=== PATIENT | female | born 1955 | race Caucasian/White ===

== ENCOUNTER 2020-06-25 07:49 | Outpatient (REF) | payer OTHER, SELFPAY ==
[2020-06-25 11:13] LABS: MANUAL DIFF FLAG NO
[2020-06-25 11:17] LABS: Basophils Percent Auto 0.8 % (0-2); Eosinophils Absolute Auto 0.1 X10*3/uL (0.0-0.4); Eosinophils Percent Auto 2.5 % (0-4); Hematocrit 40.1 % (37-47); Hemoglobin 13.1 g/dl (12.0-16.0); Imm Gran Abs Auto 0.01 X10*3/uL (0.00-0.03); Imm Gran Pct Auto 0.2 % (0.0-0.4); Lymphocytes Absolute Auto 1.9 X10*3/uL (1.2-4.9); Lymphocytes Percent Auto 40.2 % (20-40); Mean Corpuscular HGB Conc 32.7 g/dl (31.0-35.0); Mean Corpuscular Hemoglobin 33.1 pg (27.0-33.0); Mean Corpuscular Volume 101.3 fL (80-98); Mean Platelet Volume 9.8 fL (9.4-12.3); Monocytes Absolute Auto 0.7 X10*3/uL (0.1-1.2); Monocytes Percent Auto 13.9 % (2-11); Neutrophils Absolute Auto 2.1 X10*3/uL (2.0-8.3); Neutrophils Percent Auto 42.4 % (45-73); Platelet Count 254 X10*3/uL (160-400); Red Blood Count 3.96 X10*6/uL (4.20-5.50); Red Cell Distribution Width 11.6 % (11.0-16.0); White Blood Count 4.8 X10*3/uL (4.8-10.8)
[2020-06-25 11:59] LABS: Alanine Aminotransferase 24 U/L (0-31); Albumin Level 4.2 g/dL (3.5-5.0); Alkaline Phosphatase 76 U/L (39-117); Anion Gap 13 (12-20); Aspartate Amino Transferase 28 U/L (5-31); Bilirubin Total 0.3 mg/dL (0.0-1.0); Blood Urea Nitrogen 13 mg/dL (9-16); Calcium 9.1 mg/dL (8.4-10.2); Carbon Dioxide 27 mmol/L (22-29); Chloride 104 mmol/L (96-108); Cholesterol 211 mg/dL; Estimated Glomerular Filt Rate > 60; Glucose Fasting 82 mg/dL (60-99); HDL Cholesterol 66 mg/dL; LDL Cholesterol Calculated 127 mg/dl; Potassium 4.3 mmol/l (3.3-5.1); Sodium 140 mmol/L (135-145); Total Protein 7.4 g/dL (6.5-8.0); Triglycerides 94 mg/dL
[2020-06-25 12:18] LABS: Free T4 (Free Thyroxine) 0.99 ng/dL (0.71-1.85); Thyroid Stimulating Hormone 1.34 uIU/mL (0.32-4.0)
== END 2020-06-25 07:50 | disposition home or self-care (01) ==
LOC: HO.HMGCLDS 07:49
PROVIDERS: PCP Internal Medicine; Visit Provider Internal Medicine
DX: E03.9 Hypothyroidism, unspecified (principal); Z00.00 Encounter for general adult medical examination without abnormal findings
CPT/HCPCS: 36415; 80053; 80061; 84439; 84443; 85025

== ENCOUNTER 2021-02-17 08:08 | Outpatient (REF) | payer OTHER, SELFPAY ==
[2021-02-20 12:00] LABS: HPV 16 RNA NOT DETECTED (NOT DETECTED); HPV mRNA E6/E7 rflx Detected (Not Detected)
== END 2021-02-17 08:09 | disposition home or self-care (01) ==
LOC: HO.LAB 08:08
PROVIDERS: PCP Internal Medicine; Visit Provider Advanced Practice Midwife
DX: Z01.419 Encounter for gynecological examination (general) (routine) without abnormal findings (principal); Z78.0 Asymptomatic menopausal state; Z80.9 Family history of malignant neoplasm, unspecified
CPT/HCPCS: 87624; 87625; 88142

== ENCOUNTER 2022-02-19 09:01 | Outpatient (REF) | payer OTHER, SELFPAY ==
[2022-02-26 06:02] LABS: HPV 16 RNA NOT DETECTED (NOT DETECTED); HPV mRNA E6/E7 rflx Detected (Not Detected)
== END 2022-02-19 09:02 | disposition home or self-care (01) ==
LOC: HO.LAB 09:01
PROVIDERS: Visit Provider Advanced Practice Midwife
DX: Z01.419 Encounter for gynecological examination (general) (routine) without abnormal findings (principal); Z11.51 Encounter for screening for human papillomavirus (HPV)
CPT/HCPCS: 87624; 87625; 88142

== ENCOUNTER 2022-03-02 07:08 | Outpatient (REF) | payer OTHER, SELFPAY ==
[2022-03-02 11:26] LABS: MANUAL DIFF FLAG NO
[2022-03-02 11:35] LABS: Basophils Percent Auto 0.5 % (0-2); Eosinophils Absolute Auto 0.3 X10*3/uL (0.0-0.4); Eosinophils Percent Auto 2.8 % (0-4); Hematocrit 35.6 % (37.0-47.0); Hemoglobin 11.2 g/dl (12.0-16.0); Imm Gran Abs Auto 0.04 X10*3/uL (0.00-0.03); Imm Gran Pct Auto 0.5 % (0.0-0.4); Lymphocytes Absolute Auto 2.3 X10*3/uL (1.2-4.9); Lymphocytes Percent Auto 26.1 % (20-40); Mean Corpuscular HGB Conc 31.5 g/dl (31.0-35.0); Mean Corpuscular Hemoglobin 30.9 pg (27.0-33.0); Mean Corpuscular Volume 98.3 fL (80.0-98.0); Mean Platelet Volume 8.5 fL (9.4-12.3); Monocytes Percent Auto 11.8 % (2-11); Neutrophils Absolute Auto 5.2 x10*3/uL (2.0-8.3); Neutrophils Percent Auto 58.3 % (45-73); Platelet Count 435 X10*3/uL (160-400); Red Blood Count 3.62 X10*6/uL (4.20-5.50); Red Cell Distribution Width 11.6 % (11.0-16.0); White Blood Count 8.8 X10*3/uL (4.8-10.8)
[2022-03-02 12:09] LABS: Free T4 (Free Thyroxine) 1.15 ng/dL (0.71-1.85); Thyroid Stimulating Hormone 1.17 uIU/mL (0.32-4.0)
[2022-03-02 12:12] LABS: Erythrocyte Sedimentation Rate 97 MM/HR (0-20)
[2022-03-02 12:16] LABS: Alanine Aminotransferase 8 U/L (0-31); Albumin Level 3.7 g/dL (3.5-5.0); Alkaline Phosphatase 74 U/L (39-117); Anion Gap 17 (12-20); Aspartate Amino Transferase 15 U/L (5-31); Bilirubin Total 0.4 mg/dL (0.0-1.0); Blood Urea Nitrogen 11 mg/dL (9-16); Calcium 9.2 mg/dL (8.4-10.2); Carbon Dioxide 24 mmol/L (22-29); Chloride 103 mmol/L (96-108); Cholesterol 164 mg/dL; Estimated Glomerular Filt Rate > 60; Glucose Fasting 97 mg/dL (60-99); HDL Cholesterol 51 mg/dL; LDL Cholesterol Calculated 98 mg/dl; Potassium 4.3 mmol/L (3.3-5.1); Sodium 140 mmol/L (135-145); Total Protein 7.9 g/dL (6.5-8.0); Triglycerides 78 mg/dL
== END 2022-03-02 07:09 | disposition home or self-care (01) ==
LOC: HO.HMGCLDS 07:08
PROVIDERS: PCP Internal Medicine; Visit Provider Internal Medicine
DX: Z00.00 Encounter for general adult medical examination without abnormal findings (principal); Z86.16 Personal history of COVID-19
CPT/HCPCS: 36415; 80053; 80061; 82550; 84439; 84443; 85025; 85652; 86140

== ENCOUNTER 2022-03-04 09:36 | Outpatient (REF) | payer OTHER, SELFPAY ==
[2022-03-04 13:51] LABS: C Reactive Protein 11.92 mg/dL (< or = 0.50); Rheumatoid Factor < 15.0 IU/mL (<15.0)
[2022-03-06 21:51] LABS: Anti Nuclear Antibody Screen NEGATIVE (NEGATIVE)
[2022-03-09 21:42] LABS: Thyroid Peroxidase Antibodies 8 IU/mL (<9)
== END 2022-03-04 09:37 | disposition home or self-care (01) ==
LOC: HO.HMGCLDS 09:36
PROVIDERS: PCP Internal Medicine; Visit Provider Internal Medicine
DX: M79.10 Myalgia, unspecified site (principal); R79.82 Elevated C-reactive protein (CRP)
CPT/HCPCS: 36415; 86038; 86039; 86140; 86376; 86431

== ENCOUNTER 2022-04-13 16:07 | Outpatient (REF) | payer OTHER, SELFPAY | END 2022-04-13 16:08 | disposition home or self-care (01) | LOC: HO.LNP 16:07 | PROVIDERS: PCP Internal Medicine; Visit Provider Obstetrics & Gynecology | DX: R87.610 Atypical squamous cells of undetermined significance on cytologic smear of cervix (ASC-US) (principal); R87.810 Cervical high risk human papillomavirus (HPV) DNA test positive | CPT/HCPCS: 57454; 88305 ==

== ENCOUNTER 2022-06-16 09:59 | Outpatient (REF) | payer OTHER, SELFPAY ==
[2022-06-16 11:56] LABS: Anion Gap 15 (12-20); Blood Urea Nitrogen 13 mg/dL (9-16); C Reactive Protein 0.43 mg/dL (< or = 0.50); Carbon Dioxide 28 mmol/L (22-29); Chloride 102 mmol/L (96-108); Estimated Glomerular Filt Rate > 60; Glucose Random 88 mg/dL (60-115); Potassium 4.1 mmol/L (3.3-5.1); Sodium 141 mmol/L (135-145)
[2022-06-16 12:51] LABS: Erythrocyte Sedimentation Rate 34 MM/HR (0-20)
== END 2022-06-16 10:00 | disposition home or self-care (01) ==
LOC: HO.HMGCLDS 09:59
PROVIDERS: PCP Internal Medicine; Visit Provider Internal Medicine
DX: M35.3 Polymyalgia rheumatica (principal)
CPT/HCPCS: 36415; 80048; 85652; 86140

== ENCOUNTER 2022-08-04 08:16 | Outpatient (REF) | payer OTHER, SELFPAY ==
[2022-08-04 11:19] LABS: MANUAL DIFF FLAG NO
[2022-08-04 11:38] LABS: Basophils Absolute Auto 0.1 X10*3/uL (0.0-0.2); Basophils Percent Auto 0.5 % (0-2); Eosinophils Absolute Auto 0.1 X10*3/uL (0.0-0.4); Hematocrit 41.4 % (37.0-47.0); Hemoglobin 13.3 g/dl (12.0-16.0); Imm Gran Abs Auto 0.06 X10*3/uL (0.00-0.03); Imm Gran Pct Auto 0.5 % (0.0-0.4); Lymphocytes Absolute Auto 4.1 X10*3/uL (1.2-4.9); Lymphocytes Percent Auto 35.4 % (20-40); Mean Corpuscular HGB Conc 32.1 g/dl (31.0-35.0); Mean Corpuscular Hemoglobin 33.2 pg (27.0-33.0); Mean Corpuscular Volume 103.2 fL (80.0-98.0); Monocytes Absolute Auto 1.3 X10*3/uL (0.1-1.2); Monocytes Percent Auto 10.9 % (2-11); Neutrophils Absolute Auto 5.9 x10*3/uL (2.0-8.3); Neutrophils Percent Auto 51.7 % (45-73); Platelet Count 313 X10*3/uL (160-400); Red Blood Count 4.01 X10*6/uL (4.20-5.50); Red Cell Distribution Width 12.1 % (11.0-16.0); White Blood Count 11.4 X10*3/uL (4.8-10.8)
[2022-08-04 11:45] LABS: Alanine Aminotransferase 13 U/L (0-31); Albumin Level 3.9 g/dL (3.5-5.0); Alkaline Phosphatase 53 U/L (39-117); Anion Gap 14 (12-20); Aspartate Amino Transferase 18 U/L (5-31); Bilirubin Total 0.3 mg/dL (0.0-1.0); Blood Urea Nitrogen 18 mg/dL (9-16); C Reactive Protein 0.59 mg/dL (< or = 0.50); Calcium 9.3 mg/dL (8.4-10.2); Carbon Dioxide 27 mmol/L (22-29); Chloride 104 mmol/L (96-108); Estimated Glomerular Filt Rate > 60; Glucose Random 68 mg/dL (60-115); Potassium 3.8 mmol/L (3.3-5.1); Sodium 141 mmol/L (135-145); Total Protein 6.7 g/dL (6.5-8.0)
[2022-08-04 12:15] LABS: Erythrocyte Sedimentation Rate 37 MM/HR (0-20)
== END 2022-08-04 08:17 | disposition home or self-care (01) ==
LOC: HO.HMGCLDS 08:16
PROVIDERS: PCP Internal Medicine; Visit Provider Internal Medicine
DX: K21.9 Gastro-esophageal reflux disease without esophagitis (principal); M35.3 Polymyalgia rheumatica
CPT/HCPCS: 36415; 80053; 85025; 85652; 86140

== ENCOUNTER 2022-08-26 08:10 | Outpatient (REF) | payer OTHER, SELFPAY ==
[2022-08-26 12:03] LABS: C Reactive Protein 1.36 mg/dL (< or = 0.50)
[2022-08-26 12:15] LABS: Erythrocyte Sedimentation Rate 67 MM/HR (0-20)
== END 2022-08-26 08:11 | disposition home or self-care (01) ==
LOC: HO.HMGCLDS 08:10
PROVIDERS: PCP Internal Medicine; Visit Provider Internal Medicine
DX: M35.3 Polymyalgia rheumatica (principal)
CPT/HCPCS: 36415; 85652; 86140

== ENCOUNTER 2022-09-25 13:19 | Outpatient (REF) | payer OTHER, SELFPAY ==
[2022-09-25 17:19] LABS: C Reactive Protein 1.18 mg/dL (< or = 0.50)
[2022-09-25 18:07] LABS: Erythrocyte Sedimentation Rate 57 MM/HR (0-20)
== END 2022-09-25 13:20 | disposition home or self-care (01) ==
LOC: HO.HMGCLDS 13:19
PROVIDERS: PCP Internal Medicine; Visit Provider Internal Medicine
DX: M35.3 Polymyalgia rheumatica (principal)
CPT/HCPCS: 36415; 85652; 86140

== ENCOUNTER 2022-10-02 13:39 | Outpatient (REF) | payer OTHER, SELFPAY ==
--- NOTE | ~2022-10-02 | US_ITS ---
EXAMINATION: US VENOUS ULTRASOUND WITH DOPPLER LOWER EXTREMITY, BILATERAL CLINICAL INFORMATION: Bilateral calf pain. COMPARISON: None TECHNIQUE: Ultrasound of the deep veins is performed from the hip to the calf with compression sonography and color and pulse Doppler assessment. Spectral analysis with color-flow imaging is performed. FINDINGS: RIGHT: There is normal venous compression and respiratory variation and augmented flow. The visualized common femoral vein, superficial femoral vein, profunda femoral vein, popliteal vein, and the trifurcation region shows no evidence of deep venous thrombosis. There is no significant popliteal fossa cyst. LEFT: There is normal venous compression and respiratory variation and augmented flow. The visualized common femoral vein, superficial femoral vein, profunda femoral vein, popliteal vein, and the trifurcation region shows no evidence of deep venous thrombosis. There is no significant popliteal fossa cyst. If the patient's symptoms persist, followup ultrasound in 5 days 7 days might be of value to exclude proximal propagation from a non-visualized calf vein. US/US venous duplex LE BI IMPRESSION: No DVT demonstrated in the bilateral lower extremity.
[2022-10-02 16:09] LABS: Anion Gap 15 (12-20); Blood Urea Nitrogen 13 mg/dL (9-16); Calcium 9.6 mg/dL (8.4-10.2); Carbon Dioxide 28 mmol/L (22-29); Chloride 103 mmol/L (96-108); Estimated Glomerular Filt Rate > 60; Glucose Random 154 mg/dL (60-115); Magnesium 2.2 mg/dL (1.6-2.6); Potassium 4.2 mmol/L (3.3-5.1); Sodium 142 mmol/L (135-145)
== END 2022-10-02 13:40 | disposition home or self-care (01) ==
LOC: HO.US 13:39
PROVIDERS: PCP Internal Medicine; Visit Provider Internal Medicine
DX: M79.605 Pain in left leg (principal)
CPT/HCPCS: 36415; 80048; 83735; 93970

== ENCOUNTER 2022-10-19 08:24 | Outpatient (REF) | payer OTHER, SELFPAY ==
--- NOTE | ~2022-10-19 | XR_ITS ---
EXAMINATION: XR HIP LEFT XR HIP RIGHT CLINICAL INFORMATION: Osteoarthritis of hip. Decreased range of motion. Pain. COMPARISON: 07/16/2017 TECHNIQUE: Right hip, 2 views Left hip, 2 views FINDINGS: Right hip: The visualized pelvic bones are intact. The right femoral head is well-positioned within the acetabulum. The articular cartilage space is maintained. Interval increased size of marginal osteophytes around the femoral head. No fracture or osteonecrosis. Left hip: The femoral head is well-positioned within the intact acetabulum. The articular cartilage space is maintained. There appears to be increased size of osteophytes at the degenerated hip compared to 07/16/2017. No femoral fracture or osteonecrosis. XR/XR hip RT min 2V IMPRESSION: * No acute osseous injury at either hip. * [id number] osteoarthritis of both hips. The joint degeneration is slightly worse compared to 07/16/2017.
--- NOTE | ~2022-10-19 | XR_ITS ---
EXAMINATION: XR HAND RIGHT XR HAND LEFT CLINICAL INFORMATION: Osteoarthritis. Hand pain. COMPARISON: 04/10/2016 TECHNIQUE: Right hand, 3 views Left hand, 3 views FINDINGS: Right hand: Alignment is normal in the hand and wrist. There are small osteophytes of mildly degenerated first and third metacarpophalangeal joints. There are osteophytes of multiple degenerated interphalangeal joints with mild narrowing of several of the interphalangeal joint spaces. No interval development of osseous erosion or periostitis. Interval worsening of osteoarthritis at several joints, including the second and fourth PIPJs. The largest osteophytes are at the second PIP and there is surrounding soft tissue swelling. Left hand: Bones have normal alignment throughout the hand and wrist. Mild osteoarthritis of first and second metacarpophalangeal joints and at multiple interphalangeal joints. The joint degenerative changes are similar in appearance compared to 04/10/2016. No erosions or periostitis. XR/XR hand LT min 3V IMPRESSION: Chronic osteoarthritis of both hands. The mild osteoarthritis of the left hand remains similar in appearance compared to 04/10/2016. However, there is some worsening of osteoarthritis at interphalangeal joints within the right hand compared to 04/10/2016 (including the 2nd and 4th PIP joints).
--- NOTE | ~2022-10-19 | XR_ITS ---
EXAMINATION: XR HIP LEFT XR HIP RIGHT CLINICAL INFORMATION: Osteoarthritis of hip. Decreased range of motion. Pain. COMPARISON: 07/16/2017 TECHNIQUE: Right hip, 2 views Left hip, 2 views FINDINGS: Right hip: The visualized pelvic bones are intact. The right femoral head is well-positioned within the acetabulum. The articular cartilage space is maintained. Interval increased size of marginal osteophytes around the femoral head. No fracture or osteonecrosis. Left hip: The femoral head is well-positioned within the intact acetabulum. The articular cartilage space is maintained. There appears to be increased size of osteophytes at the degenerated hip compared to 07/16/2017. No femoral fracture or osteonecrosis. XR/XR hip LT min 2V IMPRESSION: * No acute osseous injury at either hip. * [id number] osteoarthritis of both hips. The joint degeneration is slightly worse compared to 07/16/2017.
--- NOTE | ~2022-10-19 | XR_ITS ---
EXAMINATION: XR HAND RIGHT XR HAND LEFT CLINICAL INFORMATION: Osteoarthritis. Hand pain. COMPARISON: 04/10/2016 TECHNIQUE: Right hand, 3 views Left hand, 3 views FINDINGS: Right hand: Alignment is normal in the hand and wrist. There are small osteophytes of mildly degenerated first and third metacarpophalangeal joints. There are osteophytes of multiple degenerated interphalangeal joints with mild narrowing of several of the interphalangeal joint spaces. No interval development of osseous erosion or periostitis. Interval worsening of osteoarthritis at several joints, including the second and fourth PIPJs. The largest osteophytes are at the second PIP and there is surrounding soft tissue swelling. Left hand: Bones have normal alignment throughout the hand and wrist. Mild osteoarthritis of first and second metacarpophalangeal joints and at multiple interphalangeal joints. The joint degenerative changes are similar in appearance compared to 04/10/2016. No erosions or periostitis. XR/XR hand RT min 3V IMPRESSION: Chronic osteoarthritis of both hands. The mild osteoarthritis of the left hand remains similar in appearance compared to 04/10/2016. However, there is some worsening of osteoarthritis at interphalangeal joints within the right hand compared to 04/10/2016 (including the 2nd and 4th PIP joints).
[2022-10-19 10:12] LABS: MANUAL DIFF FLAG NO
[2022-10-19 10:34] LABS: Basophils Absolute Auto 0.1 X10*3/uL (0.0-0.2); Basophils Percent Auto 0.4 % (0-2); Eosinophils Percent Auto 0.3 % (0-4); Hematocrit 44.4 % (37.0-47.0); Hemoglobin 14.1 g/dl (12.0-16.0); Imm Gran Abs Auto 0.08 X10*3/uL (0.00-0.03); Imm Gran Pct Auto 0.6 % (0.0-0.4); Lymphocytes Absolute Auto 1.6 X10*3/uL (1.2-4.9); Lymphocytes Percent Auto 11.5 % (20-40); Mean Corpuscular HGB Conc 31.8 g/dl (31.0-35.0); Mean Corpuscular Hemoglobin 32.6 pg (27.0-33.0); Mean Corpuscular Volume 102.5 fL (80.0-98.0); Mean Platelet Volume 8.7 fL (9.4-12.3); Monocytes Absolute Auto 0.9 X10*3/uL (0.1-1.2); Monocytes Percent Auto 6.6 % (2-11); Neutrophils Absolute Auto 11.3 x10*3/uL (2.0-8.3); Neutrophils Percent Auto 80.6 % (45-73); Platelet Count 253 X10*3/uL (160-400); Red Blood Count 4.33 X10*6/uL (4.20-5.50); Red Cell Distribution Width 11.9 % (11.0-16.0)
[2022-10-19 11:34] LABS: C Reactive Protein 0.36 mg/dL (< or = 0.50)
[2022-10-19 11:41] LABS: Erythrocyte Sedimentation Rate 34 MM/HR (0-20)
[2022-10-22 23:08] LABS: Prot Elec - Alpha1 0.3 g/dL (0.2-0.3); Prot Elec - Alpha2 0.9 g/dL (0.5-0.9); Prot Elec - Beta 1 0.5 g/dL (0.4-0.6); Prot Elec - Beta 2 0.5 g/dL (0.2-0.5); Prot Elec - Gamma 0.9 g/dL (0.8-1.7)
[2022-10-23 10:53] LABS: Cyclic Citrullinated Peptide <16 UNITS
[2022-10-23 18:08] LABS: Vitamin D 25-OH, D2 <4 ng/mL; Vitamin D 25-OH, D3 30 ng/mL; Vitamin D 25-OH, Total 30 ng/mL (30-100)
== END 2022-10-19 08:25 | disposition home or self-care (01) ==
LOC: HO.LAB 08:24
PROVIDERS: PCP Internal Medicine; Visit Provider Internal Medicine Rheumatology
DX: M19.041 Primary osteoarthritis, right hand (principal); M19.042 Primary osteoarthritis, left hand; M16.0 Bilateral primary osteoarthritis of hip; R70.0 Elevated erythrocyte sedimentation rate; Z78.0 Asymptomatic menopausal state; Z79.52 Long term (current) use of systemic steroids; Z87.39 Personal history of other diseases of the musculoskeletal system and connective tissue; Z79.899 Other long term (current) drug therapy
CPT/HCPCS: 36415; 73130; 73502; 82306; 84165; 85025; 85652; 86140; 86200

== ENCOUNTER → 2022-11-24 11:25 | Outpatient (BNVA) | payer OTHER, SELFPAY | PROVIDERS: PCP Internal Medicine; Visit Provider Internal Medicine Rheumatology | DX: M16.0 Bilateral primary osteoarthritis of hip (principal); M70.62 Trochanteric bursitis, left hip; M19.041 Primary osteoarthritis, right hand; M19.042 Primary osteoarthritis, left hand; Z87.39 Personal history of other diseases of the musculoskeletal system and connective tissue | CPT/HCPCS: 20610 ==

== ENCOUNTER 2022-11-24 12:36 | Outpatient (REF) | payer OTHER, SELFPAY ==
[2022-11-24 14:19] LABS: Erythrocyte Sedimentation Rate 38 MM/HR (0-20)
[2022-11-24 14:23] LABS: C Reactive Protein 0.63 mg/dL (< or = 0.50)
== END 2022-11-24 12:37 | disposition home or self-care (01) ==
LOC: HO.10HDL 12:36
PROVIDERS: Visit Provider Internal Medicine Rheumatology
DX: M16.0 Bilateral primary osteoarthritis of hip (principal); M19.041 Primary osteoarthritis, right hand; M19.042 Primary osteoarthritis, left hand; M70.62 Trochanteric bursitis, left hip; Z87.39 Personal history of other diseases of the musculoskeletal system and connective tissue
CPT/HCPCS: 36415; 85652; 86140

== ENCOUNTER 2023-01-06 10:01 | Outpatient (REF) | payer MEDICARE, SELFPAY ==
--- NOTE | ~2023-01-06 | MM_ITS ---
EXAMINATION: BONE DENSITOMETRY CLINICAL INDICATION: Menopause. COMPARISON: None (current study represents initial baseline exam). TECHNIQUE: Using a [employer] DXA System (software version: 13.1) manufactured by [employer], dual-energy x-ray absorptiometry was performed of the lumbar spine and left hip. The images are of good technical quality. Summary results are attached. FINDINGS: AP SPINE L1-L4: BMD 0.993 g/cm2, Z-score -0.2, T-score -1.6, osteopenia. LEFT FEMUR, NECK: BMD 0.904 g/cm2, Z-score 0.3, T-score -1.0, normal. LEFT FEMUR, TOTAL: BMD 0.851 g/cm2, Z-score -0.2, T-score -1.2, osteopenia. IDENTIFIED RISK FACTORS: Menopause, history of fracture (adult), glucocorticoids (chronic). HISTORY OF FRACTURE: Ankle. MEDICATIONS: Calcium, vitamin D, ERT/SERMS. MM/XR DEXA axial skeleton IMPRESSION: 1. DIAGNOSIS: Osteopenia based on the lowest T-score value of -1.6 in the lumbar spine applying World Health Organization criteria. 2. 10-YEAR FRACTURE RISK PREDICTION, FRAX: Not performed in this patient on estrogen or bone building treatments. 3. Treatment Recommendations: NOF guidelines recommend consideration for treatment in postmenopausal women and men age 50 and older presenting with the following: -A hip or vertebral (clinical or morphometric) fracture. -T-score less than or equal to -2.5 at the femoral neck or spine after appropriate evaluation to exclude secondary causes. -Low bone mass at the hip or spine and a 10-year fracture probability by FRAX of greater than or equal to 3% for hip fracture or greater than or equal to 20% for major osteoporotic fracture based on the [place] adapted WHO algorithm. 4. Other Recommendations: All treatment decisions require clinical judgment and consideration of individual patient factors, including patient preferences, comorbidities, previous drug use, risk factors not captured in the FRAX model (e.g. frailty, falls, vitamin D deficiency, increased bone turnover, interval significant decline in bone density) and possible under or overestimation of fracture risk by FRAX. Additional medical evaluation for secondary cause of low bone mineral density may be appropriate. FUTURE SCAN RECOMMENDATION: People with diagnosed cases of osteoporosis or at high risk for fracture should have regular bone mineral density tests. For patients eligible for Medicare, routine testing is allowed once every 2 years. The testing frequency can be increased to one year for patients who have rapidly progressing disease, those who are receiving or discontinuing medical therapy to restore bone mass, or have additional risk factors.
== END 2023-01-06 10:02 | disposition home or self-care (01) ==
LOC: HO.MAMMO 10:01
PROVIDERS: PCP Internal Medicine; Visit Provider Internal Medicine Rheumatology
DX: Z13.820 Encounter for screening for osteoporosis (principal); Z78.0 Asymptomatic menopausal state; Z79.52 Long term (current) use of systemic steroids
CPT/HCPCS: 77080

== ENCOUNTER 2023-01-25 08:04 | Outpatient (REF) | payer MEDICARE, SELFPAY ==
[2023-01-25 11:18] LABS: Erythrocyte Sedimentation Rate 68 MM/HR (0-20)
== END 2023-01-25 08:05 | disposition home or self-care (01) ==
LOC: HO.10HDL 08:04
PROVIDERS: Visit Provider Internal Medicine Rheumatology
DX: Z87.39 Personal history of other diseases of the musculoskeletal system and connective tissue (principal)
CPT/HCPCS: 36415; 85652; 86140

== ENCOUNTER → 2023-01-27 10:05 | Outpatient (BNVA) | payer MEDICARE, SELFPAY | PROVIDERS: PCP Internal Medicine; Visit Provider Internal Medicine Rheumatology | DX: M16.0 Bilateral primary osteoarthritis of hip (principal); M19.041 Primary osteoarthritis, right hand; M19.042 Primary osteoarthritis, left hand; Z87.39 Personal history of other diseases of the musculoskeletal system and connective tissue | CPT/HCPCS: 99212 ==

== ENCOUNTER 2023-02-10 08:41 | Outpatient (REF) | payer MEDICARE, SELFPAY ==
[2023-02-10 11:34] LABS: Erythrocyte Sedimentation Rate 58 MM/HR (0-20)
== END 2023-02-10 08:42 | disposition home or self-care (01) ==
LOC: HO.10HDL 08:41
PROVIDERS: Visit Provider Internal Medicine Rheumatology
DX: M85.80 Other specified disorders of bone density and structure, unspecified site (principal); Z87.39 Personal history of other diseases of the musculoskeletal system and connective tissue
CPT/HCPCS: 36415; 85652; 86140

== ENCOUNTER 2023-03-03 06:09 | Outpatient (REF) | payer MEDICARE, SELFPAY ==
[2023-03-03 11:26] LABS: MANUAL DIFF FLAG NO
[2023-03-03 11:49] LABS: Basophils Absolute Auto 0.1 X10*3/uL (0.0-0.2); Basophils Percent Auto 0.7 % (0-2); Eosinophils Absolute Auto 0.1 X10*3/uL (0.0-0.4); Eosinophils Percent Auto 1.4 % (0-4); Hematocrit 38.8 % (37.0-47.0); Hemoglobin 12.6 g/dl (12.0-16.0); Imm Gran Abs Auto 0.02 X10*3/uL (0.00-0.03); Imm Gran Pct Auto 0.2 % (0.0-0.4); Lymphocytes Absolute Auto 3.5 X10*3/uL (1.2-4.9); Lymphocytes Percent Auto 40.1 % (20-40); Mean Corpuscular HGB Conc 32.5 g/dl (31.0-35.0); Mean Corpuscular Hemoglobin 33.2 pg (27.0-33.0); Mean Corpuscular Volume 102.1 fL (80.0-98.0); Mean Platelet Volume 8.7 fL (9.4-12.3); Monocytes Percent Auto 11.9 % (2-11); Neutrophils Absolute Auto 3.9 x10*3/uL (2.0-8.3); Neutrophils Percent Auto 45.7 % (45-73); Platelet Count 322 X10*3/uL (160-400); Red Cell Distribution Width 11.9 % (11.0-16.0); White Blood Count 8.6 X10*3/uL (4.8-10.8)
[2023-03-03 11:59] LABS: Estimated Average Glucose 105 mg/dL; Hemoglobin A1c % 5.3 %
[2023-03-03 12:23] LABS: Alanine Aminotransferase 13 U/L (0-31); Albumin Level 3.8 g/dL (3.5-5.0); Alkaline Phosphatase 52 U/L (39-117); Anion Gap 15 (12-20); Aspartate Amino Transferase 19 U/L (5-31); Bilirubin Total 0.3 mg/dL (0.0-1.0); Blood Urea Nitrogen 15 mg/dL (9-16); Calcium 9.2 mg/dL (8.4-10.2); Carbon Dioxide 24 mmol/L (22-29); Chloride 107 mmol/L (96-108); Cholesterol 188 mg/dL; Estimated Glomerular Filt Rate > 60; Glucose Fasting 73 mg/dL (60-99); HDL Cholesterol 74 mg/dL; LDL Cholesterol Calculated 102 mg/dl; Potassium 3.7 mmol/L (3.3-5.1); Sodium 142 mmol/L (135-145); Triglycerides 63 mg/dL
== END 2023-03-03 06:10 | disposition home or self-care (01) ==
LOC: HO.HMGCLDS 06:09
PROVIDERS: PCP Internal Medicine; Visit Provider Internal Medicine
DX: R73.03 Prediabetes (principal); Z82.61 Family history of arthritis; I25.10 Atherosclerotic heart disease of native coronary artery without angina pectoris; M16.0 Bilateral primary osteoarthritis of hip
CPT/HCPCS: 36415; 80053; 80061; 82306; 83036; 85025

== ENCOUNTER 2023-03-22 08:06 | Outpatient (REF) | payer MEDICARE, SELFPAY ==
[2023-03-22 12:24] LABS: C Reactive Protein 0.96 mg/dL (< or = 0.50)
[2023-03-22 13:40] LABS: Erythrocyte Sedimentation Rate 65 MM/HR (0-20)
== END 2023-03-22 08:07 | disposition home or self-care (01) ==
LOC: HO.HMGCLDS 08:06
PROVIDERS: PCP Internal Medicine; Visit Provider Internal Medicine Rheumatology
DX: M85.80 Other specified disorders of bone density and structure, unspecified site (principal); Z87.39 Personal history of other diseases of the musculoskeletal system and connective tissue
CPT/HCPCS: 36415; 85652; 86140

== ENCOUNTER 2023-03-24 09:11 | Outpatient (AMB) | payer MEDICARE, SELFPAY ==
--- NOTE | 2023-03-24 09:18 | A.OFFVIS_ITS ---
Intake Vital Signs 03/24/23 09:20 Height 5 ft 7 in Weight 159 lb 9.835 oz BMI 25.0 BP 164/82 H Blood Pressure Location Rt brachial Position Sitting Pulse 74 Pulse Source Pulse Oximeter Temp 97.4 F Temp Source Skin Pulse Oximetry (%) 98 Oxygen Delivery Method Room Air Intake Visit Reasons: PMR Intake Note: Here for PMR follow up. 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 She is down to 5 mg prednisone in the morning and 2.5 mg in the afternoon. She notes only occasional discomfort in the right thigh muscles when she is active. She has no headache, jaw claudication or visual disturbance. She notes occasional discomfort in the right groin with prolonged walking, she believes this is from her osteoarthritis. She had not been taking 70 mg weekly alendronate; she felt it caused her to be constipated so she stopped it. She had been on that medication because of osteopenia and prednisone usage. [facility] Medical History Arthritis Diverticulitis Kedar's disease Surgical History H/O toe surgery Hx of wisdom tooth extraction Family History Sister Ovarian cancer Paternal Grandmother History of breast cancer Mother Rheumatoid arthritis Other Family history of arthritis Social History Alcohol intake: current Alcohol intake frequency: holidays/special occasions only Alcohol type: wine Patient Tobacco Use Status: Never used Tobacco Review of Systems Const Details: Negative for appetite change, weight change, fever, chills, malaise and fatigue Eyes Details: Negative for vision change, dry eyes,headaches and dizziness Card Details: Negative chest pain, edema and syncope Resp Details: Negative for SOB, cough and wheezing GI Details: Negative indigestion/heartburn, nausea, abdominal pain, bowel changes, diarrhea, constipation and bloody stool. Endo Details: Negative for polyuria and polydypsia Chris/Lymph Details: Negative for excessive bruising or bleeding. Physical Exam Vital Signs: Last Vital Signs Temp 97.4 F 03/24/23 09:20 Pulse 74 03/24/23 09:20 BP 164/82 H 03/24/23 09:20 Pulse Ox 98 03/24/23 09:20 Oxygen Delivery Method Room Air 03/24/23 09:20 BMI result Body Mass Index 25.0 APPEARANCE: Patient in no acute distress EYES no redness, pupils equal and reactive to light, eyelids normal.? No temporal artery tenderness, redness or swelling. Cervical Spine:.? Full range of motion without pain; no tenderness. Thoracic Spine:.? No scoliosis.? No tenderness on palpation. Lumbar Spine:.? Alignment normal.? Full range of motion without pain, no tenderness. Chest Wall:.? No tenderness, swelling, increased warmth or erythema. Hands:? Right:? There is bony enlargement at the 2nd through 5th PIP joints.? There is mild pain with range of motion at the 2nd and 3rd PIP's.? The 2nd through 4th PIP joints are the mildly tender.? There is some nontender bony enlargement at the 2nd and 5th DIP joints.? There is no flexor tendon triggering.? There is no MCP tenderness, thenar atrophy, sensory loss, or MCP swelling.? Left:? Normal pain-free range of motion without tenderness, soft tissue swelling, increased warmth or erythema.? There is some minimal bony enlargement at the thumb IP and the 2nd 3rd PIP joints.? No sensory loss or thenar atrophy. Wrists:.? Normal pain-free range of motion without tenderness, swelling, increased warmth or erythema. Elbows:. Normal pain-free range of motion without tenderness, swelling, increased warmth or erythema. Shoulders:.?? Full range of motion without pain. No tenderness, weakness, swelling, increased warmth or erythema. Hips:? Right: Mild groin and buttock discomfort with more than 5 degrees of internal rotation or 10 degrees of external rotation.? Motion is limited at that point.? There is no groin mass or tenderness.? Left:? Mild lateral pain with extremes of normal range of motion. ? No groin pain with motion. Hip bursa:.? Left:? Mild trochanteric tenderness.? Right:? No tenderness. Knees:?? Normal pain-free range of motion with slight patellofemoral crepitus but no effusion, tenderness, swelling, increased warmth or erythema.? Ankles: Will Normal pain-free range of motion without tenderness, swelling, increased warmth or erythema. ? Results Reviewed Results Reviewed: Laboratory Tests 03/03/23 03/03/23 03/22/23 06:20 06:20 08:11 WBC 8.6 Hgb 12.6 ESR 65 H Creatinine 0.77 C-Reactive Protein 03/22/23 08:11 WBC Hgb ESR Creatinine C-Reactive Protein 0.96 H Assessment & Plan Assessment & Plan (1) Osteoarthritis of hands, bilateral: Code(s): M19.041 - Primary osteoarthritis, right hand; M19.042 - Primary osteoarthritis, left hand (2) Osteopenia: Comment: 12/2022 T scores: LS spine -1.6, fem neck -1.0, tot fem -1.2 alendronate started 02/10/2023 Code(s): M85.80 - Other specified disorders of bone density and structure, unspecified site (3) ESR raised: Code(s): R70.0 - Elevated erythrocyte sedimentation rate (4) Osteoarthritis of hips, bilateral: Code(s): M16.0 - Bilateral primary osteoarthritis of hip (5) History of polymyalgia rheumatica: Code(s): Z87.39 - Personal history of other diseases of the musculoskeletal system and connective tissue Plan She does not seem to have any clear symptoms indicating clinical activity of her PMR. This right thigh pain could be referred pain from her right hip OA. She also does not have any signs of giant cell arteritis today. The CRP is close to normal but a sed rate really has not changed over the past year since she has been on the higher dose prednisone and the subsequent tapering to its current level. That makes us think there may be something else driving the elevated sed rate so I will check for immunofixation looking for a paraprotein. We elected to try to taper further the prednisone since she was feeling well. She will go on some 1 mg tablets and take 4 mg in the morning and 2.5 mg in the afternoon. In May she will drop to 3 mg in the morning and 2.5 mg in the afternoon in on June 02 go down to 2 mg the morning and 2.5 mg in the afternoon. She will call us with any flare of symptoms. We will check the acute phase reactants again in late April and before her next visit in 3 months. I told her she should give the alendronate another try as it is not usually a medicine that causes constipation where as her calcium supplement may be the culprit in that regard. Orders: Orders Immunofixation Pnl, Serum Today R70.0 - Elevated erythrocyte sedimentation rate C Reactive Protein Today Z87.39 - Personal history of other diseases of the musculoskeletal system and connective tissue Erythrocyte Sedimentation Rate Today Z87.39 - Personal history of other diseases of the musculoskeletal system and connective tissue Erythrocyte Sedimentation Rate 1 Month Z87.39 - Personal history of other diseases of the musculoskeletal system and connective tissue C Reactive Protein 1 Month Z87.39 - Personal history of other diseases of the musculoskeletal system and connective tissue Medications: New prednisone four tab in AM and one 2.5 mg tab in PM 120 tabs 5RF Z87.39 - Personal history of other diseases of the musculoskeletal system and connective tissue Coding Level of Care Code Est Pt Level 3 (16506) Diagnoses Osteoarthritis of hands, bilateral M19.041; M19.042 Osteopenia M85.80 ESR raised R70.0 Osteoarthritis of hips, bilateral M16.0 History of polymyalgia rheumatica Z87.39
[2023-03-24 09:20] VITALS: BP 164/82; PULSE 74; TEMP 36.3; O2SAT 98; BMI 25.0
== END 2023-03-24 10:10 | disposition home or self-care (01) ==
PROVIDERS: PCP Internal Medicine; Visit Provider Internal Medicine Rheumatology
DX: M19.041 Primary osteoarthritis, right hand (principal); M19.042 Primary osteoarthritis, left hand; M85.80 Other specified disorders of bone density and structure, unspecified site; R70.0 Elevated erythrocyte sedimentation rate; M16.0 Bilateral primary osteoarthritis of hip; Z87.39 Personal history of other diseases of the musculoskeletal system and connective tissue
CPT/HCPCS: 99213

== ENCOUNTER → 2023-03-24 09:11 | Outpatient (BNVA) | payer MEDICARE, SELFPAY | PROVIDERS: PCP Internal Medicine; Visit Provider Internal Medicine Rheumatology | DX: M19.041 Primary osteoarthritis, right hand (principal); M19.042 Primary osteoarthritis, left hand; M85.80 Other specified disorders of bone density and structure, unspecified site; M16.0 Bilateral primary osteoarthritis of hip; R70.0 Elevated erythrocyte sedimentation rate; Z87.39 Personal history of other diseases of the musculoskeletal system and connective tissue | CPT/HCPCS: 99212 ==

== ENCOUNTER 2023-04-28 07:51 | Outpatient (REF) | payer MEDICARE, SELFPAY ==
[2023-04-28 11:48] LABS: C Reactive Protein 1.18 mg/dL (< or = 0.50)
[2023-04-28 12:25] LABS: Erythrocyte Sedimentation Rate 67 MM/HR (0-20)
== END 2023-04-28 07:52 | disposition home or self-care (01) ==
LOC: HO.HMGCLDS 07:51
PROVIDERS: PCP Internal Medicine; Visit Provider Internal Medicine Rheumatology
DX: Z87.39 Personal history of other diseases of the musculoskeletal system and connective tissue (principal)
CPT/HCPCS: 36415; 85652; 86140

== ENCOUNTER 2023-06-28 08:19 | Outpatient (REF) | payer MEDICARE, SELFPAY ==
[2023-06-28 12:41] LABS: Erythrocyte Sedimentation Rate 80 MM/HR (0-20)
[2023-06-30 19:48] LABS: IgA 483 mg/dL (70-320); IgG 1303 mg/dL (600-1540); IgM 112 mg/dL (50-300)
== END 2023-06-28 08:20 | disposition home or self-care (01) ==
LOC: HO.HMGCLDS 08:19
PROVIDERS: PCP Internal Medicine; Visit Provider Internal Medicine Rheumatology
DX: R70.0 Elevated erythrocyte sedimentation rate (principal); Z87.39 Personal history of other diseases of the musculoskeletal system and connective tissue
CPT/HCPCS: 36415; 82784; 85652; 86140; 86334

== ENCOUNTER 2023-07-01 09:09 | Outpatient (AMB) | payer MEDICARE, SELFPAY ==
[2023-07-01 09:31] VITALS: BP 126/76; PULSE 82; TEMP 36.1; O2SAT 98; BMI 25.1
--- NOTE | 2023-07-01 09:31 | MHC.OFFVIS ---
Intake Vital Signs 07/01/23 09:31 Height 5 ft 7 in Weight 160 lb 7.944 oz BMI 25.1 BP 126/76 Blood Pressure Location Lt brachial Position Sitting Pulse 82 Pulse Source Pulse Oximeter Temp 97.0 F Temp Source Skin Pulse Oximetry (%) 98 Oxygen Delivery Method Room Air Intake Visit Reasons: PMR Speaker Mounter Required: No Allergies penicillin V Allergy (Unknown, Verified 07/01/23 09:36) Unknown Medication List - Last Reconciled 07/01/23 by Valerie Alvarez RN calcium carbonate (Calcium 500) 500 mg PO DAILY cholecalciferol (vitamin D3) 50 mcg PO DAILY cranberry nnvw-X-oopylngf coag 450-30-50 qc-gm-wddxgtw (Mxutgzwer-Qggxorurh-Sxrjgar C) tabs PO cyanocobalamin (vitamin B-12) 1,000 mcg PO DAILY epinephrine (Auvi-Q) IM omega-3 fatty acids (Fish Oil Concentrate) 1,000 mg PO DAILY prednisone two tab in AM and one tab in PM daily prednisone four tab in AM and one 2.5 mg tab in PM rujedbt-qpsy-sropk-oreg-capryl 100 mg-150 mg- 50 mg-150 mg caps PO HPI HPI Comments History of Present Illness Details The patient returns for evaluation of her PMR. We have been trying to taper her prednisone. At last visit she was at 5 mg in morning and 2.5 mg in the evening. Each month we dropped the morning dose by 1 mg. By the time she got to 3 mg in the morning and 2.5 mg in the evening she felt like she was having some more pain in the hips and the shoulders. She now feels she still has about the same pain at 2.5 mg b.i.d.. There has been no headache, jaw claudication or visual disturbance. She has not lost any weight. She has not noticed any decrement in her functioning. She does get pain in the right buttock and groin area while she is walking. She did not tolerate the alendronate, it gave her some nausea. She was taking this for osteopenia in the face of her prednisone use. [facility] Medical History Diverticulitis Arthritis Kedar's disease Surgical History H/O toe surgery Hx of wisdom tooth extraction Family History Sister Ovarian cancer Paternal Grandmother History of breast cancer Mother Rheumatoid arthritis Other Family history of arthritis Social History Alcohol intake: current Alcohol intake frequency: holidays/special occasions only Alcohol type: wine Patient Tobacco Use Status: Never used Tobacco Review of Systems Const Details: Negative for appetite change, weight change, fever, chills, malaise and fatigue Eyes Details: Negative for vision change, dry eyes,headaches and dizziness Card Details: Negative chest pain, edema and syncope Resp Details: Negative for SOB, cough and wheezing GI Details: Negative indigestion/heartburn, nausea, abdominal pain, bowel changes, diarrhea, constipation and bloody stool. Endo Details: Negative for polyuria and polydypsia Chris/Lymph Details: Negative for excessive bruising or bleeding. Physical Exam Vital Signs: Last Vital Signs Temp 97.0 F 07/01/23 09:31 Pulse 82 07/01/23 09:31 BP 126/76 07/01/23 09:31 Pulse Ox 98 07/01/23 09:31 Oxygen Delivery Method Room Air 07/01/23 09:31 BMI result Body Mass Index 25.1 APPEARANCE: Patient in no acute distress EYES no redness, pupils equal and reactive to light, eyelids normal.? No temporal artery tenderness, redness or swelling. Cervical Spine:.? Full range of motion without pain; no tenderness. Thoracic Spine:.? No scoliosis.? No tenderness on palpation. Lumbar Spine:.? Alignment normal.? Full range of motion without pain, no tenderness. Chest Wall:.? No tenderness, swelling, increased warmth or erythema. Hands:? Right:? There is bony enlargement at the 2nd through 5th PIP joints; this is a bit more prominent at the 2nd PIP..? There is mild pain with range of motion at the 2nd and 3rd PIP's.? The 2nd through 4th PIP joints are the mildly tender.? There is some nontender bony enlargement at the 2nd and 5th DIP joints.? There is no flexor tendon triggering.? There is no MCP tenderness, thenar atrophy, sensory loss, or MCP swelling.? Left:? Normal pain-free range of motion without tenderness, soft tissue swelling, increased warmth or erythema.? There is some minimal bony enlargement at the thumb IP and the 2nd 3rd PIP joints.? No sensory loss or thenar atrophy. Wrists:.? Normal pain-free range of motion without tenderness, swelling, increased warmth or erythema. Elbows:. Normal pain-free range of motion without tenderness, swelling, increased warmth or erythema. Shoulders:.?? Full range of motion without pain. No tenderness, weakness, swelling, increased warmth or erythema. Hips:? Right: Mild groin and buttock discomfort with more than 5 degrees of internal rotation or 10 degrees of external rotation.? Motion is limited at that point.? There is no groin mass or tenderness.? Left:? Mild lateral pain with extremes of normal range of motion. ? No groin pain with motion. Hip bursa:.? Left:? Mild trochanteric tenderness.? Right:? No tenderness. Knees:?? Normal pain-free range of motion with slight patellofemoral crepitus but no effusion, tenderness, swelling, increased warmth or erythema.? Ankles: Will Normal pain-free range of motion without tenderness, swelling, increased warmth or erythema. ? Results Reviewed Results Reviewed: Laboratory Tests 04/28/23 04/28/23 06/28/23 07:56 07:56 08:24 ESR 67 H 80 H C-Reactive Protein 1.18 H 06/28/23 08:24 ESR C-Reactive Protein 2.70 H June 28: No monoclonal globulin seen on electrophoresis. Assessment & Plan Assessment & Plan (1) Osteoarthritis of hips, bilateral: Code(s): M16.0 - Bilateral primary osteoarthritis of hip (2) Osteoarthritis of hands, bilateral: Code(s): M19.041 - Primary osteoarthritis, right hand; M19.042 - Primary osteoarthritis, left hand (3) Osteopenia: Comment: 12/2022 T scores: LS spine -1.6, fem neck -1.0, tot fem -1.2 alendronate started 02/10/2023 Code(s): M85.80 - Other specified disorders of bone density and structure, unspecified site (4) History of polymyalgia rheumatica: Comment: Onset 03/2022, prednisone started Code(s): Z87.39 - Personal history of other diseases of the musculoskeletal system and connective tissue Plan With the taper of the prednisone she has had some return of some of her symptoms although she thinks these are tolerable at this point. The sed rate and CRP also have risen again. Still there are no signs of giant cell arteritis. She of course still has limited motion in the right hip where she has documented osteoarthritis. I still cannot find any other etiology for the elevated acute inflammatory markers other than the PMR. She wants to stay at the current 2.5 b.i.d. prednisone and that seems reasonable for now. We will check another set of inflammatory markers in a few weeks and also before her next visit in 2 months. We talked about the possibility of using Kevzara as a steroid sparing agent for her PMR. I gave her some written information on that medication to review. She seems not particularly enthused about its potential immunosuppressive affect. She also could not tolerate the alendronate and I think given her now rather prolonged prednisone exposure she might benefit from the use of zoledronic acid infusions. I gave her some information on that medication to review but again she was not interested in progressing to that treatment for now. Orders: Orders C Reactive Protein 06/28/23 Z. - Personal history of other diseases of the musculoskeletal system and connective tissue Erythrocyte Sedimentation Rate Today - Personal history of other diseases of the musculoskeletal system and connective tissue C Reactive Protein Today - Personal history of other diseases of the musculoskeletal system and connective tissue Erythrocyte Sedimentation Rate 2 Weeks - Personal history of other diseases of the musculoskeletal system and connective tissue C Reactive Protein 2 Weeks - Personal history of other diseases of the musculoskeletal system and connective tissue Erythrocyte Sedimentation Rate 06/28/23. - Personal history of other diseases of the musculoskeletal system and connective tissue Coding Level of Care Code Est Pt Level 3 (21735) Diagnoses Osteoarthritis of hips, bilateral M16.0 Osteoarthritis of hands, bilateral M19.041; M19.042 Osteopenia M85.80 History of polymyalgia rheumatica
== END 2023-07-01 10:05 | disposition home or self-care (01) ==
LOC: HO.RHE 09:09
PROVIDERS: PCP Internal Medicine; Visit Provider Internal Medicine Rheumatology
DX: M16.0 Bilateral primary osteoarthritis of hip (principal); M19.041 Primary osteoarthritis, right hand; M19.042 Primary osteoarthritis, left hand; M85.80 Other specified disorders of bone density and structure, unspecified site; Z87.39 Personal history of other diseases of the musculoskeletal system and connective tissue
CPT/HCPCS: 99213

== ENCOUNTER → 2023-07-01 09:09 | Outpatient (BNVA) | payer MEDICARE, SELFPAY | PROVIDERS: PCP Internal Medicine; Visit Provider Internal Medicine Rheumatology | DX: M16.0 Bilateral primary osteoarthritis of hip (principal); M19.041 Primary osteoarthritis, right hand; M19.042 Primary osteoarthritis, left hand; M85.80 Other specified disorders of bone density and structure, unspecified site; Z87.39 Personal history of other diseases of the musculoskeletal system and connective tissue | CPT/HCPCS: 99212 ==

== ENCOUNTER 2023-07-14 10:06 | Outpatient (REF) | payer MEDICARE, SELFPAY ==
--- NOTE | ~2023-07-14 | US_ITS ---
EXAMINATION: US THYROID CLINICAL INFORMATION: Enlarged thyroid. History of Kedar's thyroiditis. COMPARISON: Thyroid ultrasound 03/06/2012 and 12/09/2007. TECHNIQUE: Linear transducer grayscale and color Doppler examination with attention to the region of the thyroid. FINDINGS: SIZE: Measurements of the thyroid lobes and nodules are given in sagittal, anteroposterior and transverse dimensions respectively. Right Thyroid Lobe: 6.3 x 1.9 x 2.0 cm, volume 12.5 mL. Previously 5.4 x 1.5 x 2.1 cm, volume 8.9 mL. Parenchyma: The gland echotexture is heterogeneous. Thyroid vascularity is increased. Left Thyroid Lobe: 6.7 x 1.6 x 2.0 cm, volume 11.2 mL. Previously 5.6 x 1.8 x 1.9 cm, volume 10.0 mL. Parenchyma: The gland echotexture is heterogeneous. Thyroid vascularity is increased. Isthmus: 0.7 cm in maximum AP dimension. Previously 0.5 cm. No focal thyroid nodule is seen. NODES: No lymphadenopathy is seen in the tissue surrounding the thyroid gland. US/US thyroid IMPRESSION: Heterogeneous hypervascular thyroid which can be seen in the setting of thyroiditis. ACR TI-RADS RECOMMENDATION REFERENCE: Ultrasound-guided fine-needle aspiration, follow up ultrasound, no further followup. * TR1 (0 point) and TR2 (2 points): No FNA or followup * TR3 (3 points): FNA if more than or equal to 2.5 cm in maximum dimension, follow up ultrasound in 1, 3 and 5 years if 1.5 to 2.4 cm in maximum dimension. * TR4 (4-6 points): FNA if more than or equal to 1.5 cm in maximum dimension, follow up ultrasound in 1, 2, 3 and 5 years if 1 to 1.4 cm in maximum dimension. * TR5 (more than or equal to 7 points): FNA if more than or equal to 1 cm in maximum dimension, follow up ultrasound every year for 5 years if 0.5 to 0.9 cm in maximum dimension. * TR3, TR4 or TR5 nodules that are below the size threshold for follow up receive no followup.
== END 2023-07-14 10:07 | disposition home or self-care (01) ==
LOC: HO.HMGCX 10:06
PROVIDERS: PCP Internal Medicine; Visit Provider Internal Medicine
DX: E04.9 Nontoxic goiter, unspecified (principal)
CPT/HCPCS: 76536

== ENCOUNTER 2023-07-22 08:56 | Outpatient (REF) | payer MEDICARE, SELFPAY ==
[2023-07-22 12:38] LABS: C Reactive Protein 1.49 mg/dL (< or = 0.50)
[2023-07-22 12:59] LABS: Free T4 (Free Thyroxine) 0.97 ng/dL (0.71-1.85); Thyroid Stimulating Hormone 1.34 uIU/mL (0.32-4.0)
[2023-07-22 13:01] LABS: Erythrocyte Sedimentation Rate 81 MM/HR (0-20)
== END 2023-07-22 08:57 | disposition home or self-care (01) ==
LOC: HO.HMGCLDS 08:56
PROVIDERS: Absent Provider Internal Medicine Rheumatology; PCP Internal Medicine; Visit Provider Internal Medicine
DX: E06.3 Autoimmune thyroiditis (principal); Z87.39 Personal history of other diseases of the musculoskeletal system and connective tissue
CPT/HCPCS: 36415; 84439; 84443; 85652; 86140

== ENCOUNTER 2023-08-10 07:41 | Day surgery (SDC) | payer MEDICARE, SELFPAY ==
[2023-08-06 11:34] VITALS: BMI 25.1
--- NOTE | 2023-08-09 10:39 | HO.ANESPROP2 ---
Documented by User: Melissa Orlando NP 08/09/23 10:40 HPI - Anesthesia Eval Consult details Narrative: 67yo F for Colonoscopy Prednisone daily for PMR PMFSH Active Problems Active Problems: All Active Problems (Updated 08/06/23 @ 11:27 by Kimberly Rene RN) Osteopenia (Acute) Trochanteric bursitis of left hip (Acute) Post-menopausal (Acute) On prednisone therapy (Acute) Osteoarthritis of hands, bilateral (Acute) Osteoarthritis of hips, bilateral (Acute) History of polymyalgia rheumatica (Acute) ASCUS with positive high risk HPV cervical (Acute) Past Medical History Medical History Polymyalgia rheumatica History of kidney stones Diverticulitis Arthritis Kedar's disease Family History Family History Sister Ovarian cancer Paternal Grandmother History of breast cancer Mother Rheumatoid arthritis Other Family history of arthritis Surgical History Surgical History H/O toe surgery Hx of wisdom tooth extraction Social History Social History Alcohol intake: current Alcohol intake frequency: holidays/special occasions only Alcohol type: wine Patient Tobacco Use Status: Never used Tobacco Use of substances other than those prescribed or required for medical reasons: No Are you DNR?: No Advance Directives: No Advance Directives Information Provided: Yes Meds Allergies Allergy/AdvReac Type Severity Reaction Status Date / Time penicillin V Allergy Unknown Unknown Verified 08/10/23 08:07 Home Medications Medication Instructions Recorded Confirmed Last Taken Type calcium carbonate 500 mg calcium 500 mg PO DAILY 02/17/21 07/01/23 Unknown History (1,250 mg) tablet (Calcium 500) cholecalciferol (vitamin D3) 50 50 mcg PO DAILY 02/17/21 07/01/23 Unknown History mcg (2,000 unit) capsule cranberry jbva-L-fbgvjuio coag 450 tab PO 02/17/21 07/01/23 Unknown History mg-30 mg-50 million cell tablet (Nombiczlw-Zzqfmcsvc-Qrsxiia C) omega-3 fatty acids 1,000 mg 1,000 mg PO DAILY 02/17/21 07/01/23 Unknown History capsule (Fish Oil Concentrate) epinephrine 0.3 mg/0.3 mL IM 10/19/22 07/01/23 Unknown History injection, auto-injector (Auvi-Q) cyanocobalamin (vitamin B-12) 1,000 mcg PO DAILY 07/01/23 07/01/23 Unknown History 1,000 mcg capsule tumeric 100 mg-pastora 150 mg-olive cap PO 07/01/23 07/01/23 Unknown History 50 mg-oreg 150 mg-caprylate capsule Exam Height,Weight and Vital Signs: Height 5 ft 7 in Weight 72.575 kg Pertinent Lab Results Pertinent Lab Results: Laboratory Tests 03/03/23 06:20 WBC 8.6 Hgb 12.6 Hct 38.8 Plt Count 322 D Sodium 142 Potassium 3.7 Chloride 107 Carbon Dioxide 24 BUN 15 Creatinine 0.77 Assessment and Plan Assessment Anesthesia Assessment: Chart Reviewed Documented by User: Shara Ortiz MD 08/10/23 08:20 [facility] Past Medical History Medical History Polymyalgia rheumatica History of kidney stones Diverticulitis Arthritis Kedar's disease Family History Family History Sister Ovarian cancer Paternal Grandmother History of breast cancer Mother Rheumatoid arthritis Other Family history of arthritis Family history of problems with anesthesia: No Surgical History Surgical History H/O toe surgery Hx of wisdom tooth extraction History of Problems with Anesthesia: No Social History Social History Alcohol intake: current Alcohol intake frequency: holidays/special occasions only Alcohol type: wine Patient Tobacco Use Status: Never used Tobacco Use of substances other than those prescribed or required for medical reasons: No Are you DNR?: No Advance Directives: No Advance Directives Information Provided: Yes Meds Allergies Allergy/AdvReac Type Severity Reaction Status Date / Time penicillin V Allergy Unknown Unknown Verified 08/10/23 08:07 Home Medications Medication Instructions Recorded Confirmed Last Taken Type calcium carbonate 500 mg calcium 500 mg PO DAILY 02/17/21 07/01/23 Unknown History (1,250 mg) tablet (Calcium 500) cholecalciferol (vitamin D3) 50 50 mcg PO DAILY 02/17/21 07/01/23 Unknown History mcg (2,000 unit) capsule cranberry ukso-S-dfkpucya coag 450 tab PO 02/17/21 07/01/23 Unknown History mg-30 mg-50 million cell tablet (Qeyvlaltn-Jbxdtbydh-Hhbvuiv C) omega-3 fatty acids 1,000 mg 1,000 mg PO DAILY 02/17/21 07/01/23 Unknown History capsule (Fish Oil Concentrate) epinephrine 0.3 mg/0.3 mL IM 10/19/22 07/01/23 Unknown History injection, auto-injector (Auvi-Q) cyanocobalamin (vitamin B-12) 1,000 mcg PO DAILY 07/01/23 07/01/23 Unknown History 1,000 mcg capsule tumeric 100 mg-pastora 150 mg-olive cap PO 07/01/23 07/01/23 Unknown History 50 mg-oreg 150 mg-caprylate capsule Exam Airway Mallampati Class: III (receeding chin) TM Dist: <=3cm Neck ROM: Limited Heart: rrr Lungs: cta Assessment and Plan Assessment Anesthesia Assessment: Anesthesia Plan Discussed Final Anesthetic Review Family History of Problems with Anesthesia: No History of Problems with Anesthesia: No NPO: Yes ASA Class: III Final Preanesthetic Review: No Changes in Pt Med Stat, Meds/Allgs Chart Reviewed, Consent Obtained/Reviewed and Anes Risks/Benef Reviewed Patient Risk: Intermediate Procedure Risk: Low Anesthetic Plan Anesthetic Plan: MAC: Disposition: Standard PACU
[2023-08-10 08:14] VITALS: BMI 24.8
[2023-08-10 08:19] VITALS: BP 154/75; PULSE 83; RESP 16; TEMP 36.9; O2SAT 100
[2023-08-10] MEDS: Lactated Ringers 1,000 ML 100 ML IVCONT (08:32)
--- NOTE | 2023-08-10 08:53 | MHC.SHP ---
Pre-Procedural Eval Section A Date of Service: 08/10/23 Section B Chief Complaint: Encounter for screening for malignant neoplasm of Details of Present Illness: see H&P no changes Relevant Family History (Specify if Yes): No Relevant Social History: None Present Medications: see Short Stay Collaborative assessment Medical History: No relevant PMH History of Previous Operations: No relevant previous surgery Allergies: Allergies Allergy/AdvReac Type Severity Reaction Status Date / Time penicillin V Allergy Unknown Unknown Verified 08/10/23 08:07 Review of Systems Sugical H&P ROS: Negative: Constitution, Cardiovascular, Respiratory, Neurological, Psychiatric, Hem-Onc, Allergic/Immunologic, Gastrointestinal, Genitourinary, Musculoskeletal, Integumentary, Endocrine and Eyes/Ears/Nose/Throat Exam Surgical H&P Exam: Normal: HEENT, Normal: Heart, Normal: Lungs, Normal: Extremities, Normal: Abdomen, Normal: Skin and Normal: Neurological Plan Diagnosis/Plan: Unchanged I have reviewed the history and physical and performed a pertinent physical examination on my patient. No changes have occurred unless specified. Time Spent With Patient Time: Total time managing care of this patient today ____ minutes.
[2023-08-10 09:33] VITALS: BP 117/53; PULSE 88; RESP 20; TEMP 36.1; O2SAT 100
[2023-08-10 09:48] VITALS: BP 120/46; PULSE 68; RESP 16; TEMP 36.1; O2SAT 99
--- NOTE | 2023-08-10 09:55 | OP_ITS ---
DATE OF SERVICE: 08/10/2023 SURGEON: Michael Lopes MD INDICATIONS: Colon cancer screening. PREOPERATIVE DIAGNOSIS: POSTOPERATIVE DIAGNOSIS: PROCEDURE PERFORMED: Colonoscopy to the terminal ileum. ESTIMATED BLOOD LOSS: COMPLICATIONS: ANESTHESIA: Monitored anesthesia care. ASSISTANTS: SPECIMENS: DESCRIPTION OF PROCEDURE: A history and physical performed. The risks and benefits of the procedure were explained to the patient. Informed consent was obtained. The patient was placed in the left lateral decubitus position. A digital rectal exam was performed and was found to be normal. The Olympus pediatric videocolonoscope was introduced through the rectum and advanced to the cecum. The cecum was identified by transillumination, palpation, and identification of ileocecal valve. Examination was performed. The scope was removed. She tolerated the procedure well and was returned to recovery room in stable condition. FINDINGS: The terminal ileum was examined and appeared normal. The visualized colonic mucosa was normal. The quality of the prep was good. No polyps were identified. There was scattered diverticulosis throughout the colon. Retroflexed examination showed small internal hemorrhoids. IMPRESSION: Normal colonoscopy. RECOMMENDATIONS: 1. Follow up as needed. 2. Repeat colonoscopy is recommended in 10 years for average risk individuals. MD SARIKA Fraser/LORENA / [phone]
== END 2023-08-10 10:18 | disposition home or self-care (01) ==
PROVIDERS: PCP Internal Medicine; Visit Provider Internal Medicine Gastroenterology
PROC: 0DJD8ZZ Inspection of Lower Intestinal Tract, Via Natural or Artificial Opening Endoscopic (ICD-10-PCS; CPT 45378; principal; 2023-08-10 09:20)
DX: Z12.11 Encounter for screening for malignant neoplasm of colon (principal); K57.30 Diverticulosis of large intestine without perforation or abscess without bleeding; K64.8 Other hemorrhoids; K59.00 Constipation, unspecified; M35.3 Polymyalgia rheumatica; M81.0 Age-related osteoporosis without current pathological fracture; M19.90 Unspecified osteoarthritis, unspecified site; Z87.442 Personal history of urinary calculi; Z79.52 Long term (current) use of systemic steroids; Z79.899 Other long term (current) drug therapy; Z88.0 Allergy status to penicillin
CPT/HCPCS: G0121; J2704

== ENCOUNTER 2023-08-23 09:15 | Outpatient (REF) | payer MEDICARE, SELFPAY ==
[2023-08-23 13:00] LABS: Erythrocyte Sedimentation Rate 78 MM/HR (0-20)
== END 2023-08-23 09:16 | disposition home or self-care (01) ==
LOC: HO.HMGCLDS 09:15
PROVIDERS: PCP Internal Medicine; Visit Provider Internal Medicine Rheumatology
DX: Z87.39 Personal history of other diseases of the musculoskeletal system and connective tissue (principal)
CPT/HCPCS: 36415; 85652

== ENCOUNTER 2023-09-29 10:54 | Outpatient (REF) | payer MEDICARE, SELFPAY ==
[2023-10-07 03:24] LABS: HPV mRNA E6/E7 rflx Not Detected (Not Detected)
== END 2023-09-29 10:55 | disposition home or self-care (01) ==
LOC: HO.LNP 10:54
PROVIDERS: PCP Internal Medicine; Visit Provider Advanced Practice Midwife
DX: Z01.419 Encounter for gynecological examination (general) (routine) without abnormal findings (principal); Z11.51 Encounter for screening for human papillomavirus (HPV); Z87.42 Personal history of other diseases of the female genital tract
CPT/HCPCS: 87624; 88142; G0101

== ENCOUNTER 2023-09-29 10:54 | Outpatient (AMB) | payer MEDICARE, SELFPAY ==
--- NOTE | 2023-09-29 10:56 | A.OFFVIS_ITS ---
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 She is doing well with no novelty chain maker concerns. Attempting to eat a healthy diet with calcium and vitamin D and stays active with exercise-workout 3x/wk. Currently not sexually active. Denies any vaginal dryness or irritation. STI testing offered; she declines. Last pap smear; 2021. Colpo/hx. ASCUS/HPV. Last mammogram; UTD, no copies from [facility]. Colonoscopy is UTD. Family history of breast and ovarian, no colon cancer. [facility], [facility] Medical History Polymyalgia rheumatica History of kidney stones Diverticulitis Arthritis Kedar's disease Surgical History H/O toe surgery Hx of wisdom tooth extraction Family History Sister Ovarian cancer Paternal Grandmother History of breast cancer Mother Rheumatoid arthritis Other Family history of arthritis Social History Alcohol intake: current Alcohol intake frequency: holidays/special occasions only Alcohol type: wine Patient Tobacco Use Status: Never used Tobacco Female Reproductive History Menstrual Total pregnancies: 1 Full term: 1 Number of Living Children: 1 Date of last pap smear: 02/19/22 (ascus +hpv) History of abnormal pap smear: Yes (02/19 +hpv 02/20 ascus +hpv 04/23 colpo) Date of Mammogram: 10/31/22 (Birad 1) Date of last Bone Density Screenin01/06/23 Review of Systems Const All systems reviewed & are unremarkable except as noted in HPI and below Reports as per HPI Eyes Reports no additional complaints ENT Reports no additional complaints Card Reports no additional complaints Resp Reports no additional complaints GI Reports as per HPI and Reports no additional complaints Reports as per HPI Musc Reports no additional complaints Skin/Breast Reports as per HPI Neuro Reports no additional complaints Psych Reports no additional complaints Endo Reports no additional complaints Chris/Lymph Reports no additional complaints Aller/Immun Reports no additional complaints Physical Exam Vital Signs: Last Vital Signs BP 104/64 09/29/23 11:01 BMI result Body Mass Index 25.1 Const General: cooperative, healthy appearing, no acute distress, well developed and alert Orientation/consciousness: patient oriented x3 HEENT Head: Yes normal to inspection Eyes General: appearance normal, both eyes and all related structures Neck Neck: Yes normal visual inspection Thyroid: Thyroid normal Chest Chest palpation & inspection: normal inspection of the chest and other (no puckering, dimpling, peau de orange, retraction, discharge, masses) Breast/axilla inspection: normal inspection of the breasts Breast/axilla palpation: normal palpation of the breasts Resp Effort & Inspection: normal respiratory effort GI Inspection: Yes normal to inspection Palpation (GI): Soft to palpation Rectal Exam - Female: deferred General: Yes bladder normal to palpation External Female Exam: normal external appearance and normal appearance of the urethra Speculum Exam - Vagina: normal appearance of the vagina, normal palpation, normal vaginal discharge and vagina atrophic Speculum Exam - Cervix: normal appearance of the cervix, normal palpation and Other cervical findings present (Bled slightly with Pap) Bimanual exam- vagina & uterus: normal bimanual exam, normal palpation, uterine size normal, bladder normal to palpation, normal palpation and non-tender Bimanual Exam- Adnexa, other: no masses Skin General skin exam: no rashes or lesions noted Rashes: no rashes Neuro General: patient oriented x3 Cognition (Neuro): normal cognition Extrem General: Yes normal to inspection Psych Attitude: cooperative Thought process: Normal thought process present Assessment & Plan Assessment & Plan (1) Encounter for well woman exam with routine gynecological exam: Code(s): Z01.419 - Encounter for gynecological examination (general) (routine) without abnormal findings (2) History of abnormal cervical Pap smear: Code(s): Z87.42 - Personal history of other diseases of the female genital tract Plan Discussed: Current recommendations for pap smears per ASCCP guidelines. Breast awareness, periodic self breast exams and yearly mammogram. Maintain a healthy lifestyle, well balanced diet including Calcium 1,200 mg and Vitamin D 600 IU daily, and routine exercise. Use of condoms for STI if indicated. Contact the office with any postmenopausal bleeding. Patient verbalizes understanding and agrees to the plan of care. She was given opportunity to ask questions and all questions were answered to the best of my ability. RTO in 1 year for annual novelty chain maker exam. This note is constructed using voice recognition software. While every effort has been made to ensure accuracy, window installer errors may have been included. Coding Level of Care Code Est Pt Prev Care >65y(05731) Diagnoses Encounter for well woman exam with routine gynecological exam Z01.419 History of abnormal cervical Pap smear Z87.42
[2023-09-29 11:01] VITALS: BP 104/64; BMI 25.1
== END 2023-09-29 11:53 | disposition home or self-care (01) ==
PROVIDERS: PCP Internal Medicine; Visit Provider Advanced Practice Midwife
DX: Z01.419 Encounter for gynecological examination (general) (routine) without abnormal findings (principal); Z87.42 Personal history of other diseases of the female genital tract
CPT/HCPCS: G0101; Q0091

== ENCOUNTER 2023-10-11 07:37 | Outpatient (AMB) | payer MEDICARE, SELFPAY ==
[2023-10-11 07:46] VITALS: BP 138/60; PULSE 68; TEMP 36; BMI 25.2
--- NOTE | 2023-10-11 07:46 | MHC.OFFVIS ---
Intake Vital Signs 10/11/23 07:46 Height 5 ft 7 in Weight 160 lb 14.999 oz BMI 25.2 BP 138/60 Blood Pressure Location Rt brachial Position Sitting Pulse 68 Pulse Source Palpation Temp 96.8 F Temp Source Temporal Artery Scan Intake Visit Reasons: pmr Allergies penicillin V Allergy (Unknown, Verified 09/29/23 11:01) Unknown Medication List - Last Reconciled 10/11/23 by Christopher Orozco MD calcium carbonate (Calcium 500) 500 mg PO DAILY cholecalciferol (vitamin D3) 50 mcg PO DAILY cranberry mswb-X-gbjbewpk coag 450-30-50 ny-hd-rmmfbjf (Vkpaywphv-Vpmcbrkvd-Bediqtq C) tabs PO cyanocobalamin (vitamin B-12) 1,000 mcg PO DAILY epinephrine (Auvi-Q) IM omega-3 fatty acids (Fish Oil Concentrate) 1,000 mg PO DAILY prednisone 6 mg PO DAILY rjrhhbxx-nqmd-oekam-oreg-capry 100 mg-150 mg- 50 mg-150 mg caps PO HPI HPI Comments History of Present Illness Details 67-year-old female with PMR returns for follow-up. She remains on prednisone 3.5 mg in the morning and 2.5 mg at night. She continues to feel about the same. She continues to have generalized morning stiffness of her hips and shoulders that lasts throughout the day. A little more stiff in the morning lasting about 10 minutes. She remains functional. Has not had any side effects that she can think of related to prednisone. Most recent history by Dr. Cabrera 06/2023: The patient returns for evaluation of her PMR. We have been trying to taper her prednisone. At last visit she was at 5 mg in morning and 2.5 mg in the evening. Each month we dropped the morning dose by 1 mg. By the time she got to 3 mg in the morning and 2.5 mg in the evening she felt like she was having some more pain in the hips and the shoulders. She now feels she still has about the same pain at 2.5 mg b.i.d.. There has been no headache, jaw claudication or visual disturbance. She has not lost any weight. She has not noticed any decrement in her functioning. She does get pain in the right buttock and groin area while she is walking. She did not tolerate the alendronate, it gave her some nausea. She was taking this for osteopenia in the face of her prednisone use. [facility] Medical History Polymyalgia rheumatica History of kidney stones Diverticulitis Arthritis Kedar's disease Surgical History H/O toe surgery Hx of wisdom tooth extraction Family History Sister Ovarian cancer Paternal Grandmother History of breast cancer Mother Rheumatoid arthritis Other Family history of arthritis Social History Alcohol intake: current Alcohol intake frequency: holidays/special occasions only Alcohol type: wine Patient Tobacco Use Status: Never used Tobacco Review of Systems Const Denies fever(s) and Denies weight loss Eyes Denies blurry vision Musc Reports arthralgias and Reports stiffness Physical Exam Const General: cooperative, healthy appearing and comfortable Nutritional Appearance: average body habitus Orientation/consciousness: patient oriented x3 Limitations: no limitations HEENT Head: Yes normocephalic and Yes atraumatic Mouth: moist mucous membranes Resp Effort & Inspection: normal respiratory effort and able to speak in complete sentences Auscultation: clear to auscultation bilaterally Cardio Rate: regular rate Rhythm: regular rhythm Skin General skin exam: no rashes or lesions noted Neuro General: patient oriented x3 Extrem Other: Cool extremities consistent with Raynaud's Livedo reticularis of hands and forearms No active synovitis Normal range of motion of shoulders without pain Positive empty can test on the left Negative speed's test, infraspinatus test and lift-off test bilaterally Normal nailfold capillaroscopy Assessment & Plan Assessment & Plan (1) History of polymyalgia rheumatica: Comment: Onset 03/2022, prednisone started Code(s): Z87.39 - Personal history of other diseases of the musculoskeletal system and connective tissue Plan: 67-year-old female with PMR returns for follow-up. This is her 1st visit with me. She used to follow-up with Dr. Cabrera. Patient is on 6 mg of prednisone total daily continues to have generalized stiffness throughout the day and elevated inflammatory markers. Will recheck inflammatory markers today. If they remain elevated we had discussed adding methotrexate versus Kevzara. Alternatively we can increase her prednisone back to 15-20 mg and do another taper. Follow-up in 2 months (2) Osteopenia: Comment: 12/2022 T scores: LS spine -1.6, fem neck -1.0, tot fem -1.2 alendronate started 02/10/2023 could not be tolerated. Code(s): M85.80 - Other specified disorders of bone density and structure, unspecified site Qualifiers: Osteopenia location: multiple sites Qualified Code(s): M85.89 - Other specified disorders of bone density and structure, multiple sites Plan: Will discuss further next visit Plan I spent 35 minutes reviewing patient's chart, evaluating patient, ordering diagnostic workup, counseling patient and documenting in the chart Orders: Orders Complete Blood Count Auto Diff Today Z87.39 - Personal history of other diseases of the musculoskeletal system and connective tissue Hepatitis A,B,C Profile Today Z11.59 - Encounter for screening for other viral diseases Comprehensive Met. Panel Today Z87.39 - Personal history of other diseases of the musculoskeletal system and connective tissue C Reactive Protein Today Z87.39 - Personal history of other diseases of the musculoskeletal system and connective tissue Erythrocyte Sedimentation Rate Today Z87.39 - Personal history of other diseases of the musculoskeletal system and connective tissue T Spot TB Today Z11.7 - Encounter for testing for latent tuberculosis infection Complete Blood Count Auto Diff 2 Months Z87.39 - Personal history of other diseases of the musculoskeletal system and connective tissue Comprehensive Met. Panel 2 Months Z87.39 - Personal history of other diseases of the musculoskeletal system and connective tissue C Reactive Protein 2 Months Z87.39 - Personal history of other diseases of the musculoskeletal system and connective tissue Erythrocyte Sedimentation Rate 2 Months Z87.39 - Personal history of other diseases of the musculoskeletal system and connective tissue Coding Level of Care Code Est Pt Level 4 (89930) Diagnoses History of polymyalgia rheumatica Z87.39 Osteopenia of multiple sites M85.89 Osteopenia location: multiple sites
== END 2023-10-11 08:14 | disposition home or self-care (01) ==
PROVIDERS: PCP Internal Medicine; Visit Provider Student in an Organized Health Care Education/Training Program
DX: Z87.39 Personal history of other diseases of the musculoskeletal system and connective tissue (principal); M85.89 Other specified disorders of bone density and structure, multiple sites
CPT/HCPCS: 99214

== ENCOUNTER → 2023-10-11 07:37 | Outpatient (BNVA) | payer MEDICARE, SELFPAY | PROVIDERS: PCP Internal Medicine; Visit Provider Student in an Organized Health Care Education/Training Program | DX: M85.89 Other specified disorders of bone density and structure, multiple sites (principal); Z87.39 Personal history of other diseases of the musculoskeletal system and connective tissue | CPT/HCPCS: 36415; 80053; 85025; 85652; 86140; 86481; 86704; 86706; 86709; 86803; 87340; 99212 ==

== ENCOUNTER 2023-10-11 08:19 | Outpatient (REF) | payer MEDICARE, SELFPAY ==
[2023-10-11 10:20] LABS: MANUAL DIFF FLAG NO
[2023-10-11 10:49] LABS: Basophils Percent Auto 0.5 % (0-2); Eosinophils Percent Auto 0.5 % (0-4); Hematocrit 42.7 % (37.0-47.0); Hemoglobin 13.7 g/dl (12.0-16.0); Imm Gran Abs Auto 0.03 X10*3/uL (0.00-0.03); Imm Gran Pct Auto 0.4 % (0.0-0.4); Lymphocytes Absolute Auto 2.7 X10*3/uL (1.2-4.9); Lymphocytes Percent Auto 33.1 % (20-40); Mean Corpuscular HGB Conc 32.1 g/dl (31.0-35.0); Mean Corpuscular Volume 99.8 fL (80.0-98.0); Mean Platelet Volume 8.7 fL (9.4-12.3); Monocytes Absolute Auto 1.1 X10*3/uL (0.1-1.2); Monocytes Percent Auto 13.9 % (2-11); Neutrophils Absolute Auto 4.1 x10*3/uL (2.0-8.3); Neutrophils Percent Auto 51.6 % (45-73); Platelet Count 331 X10*3/uL (160-400); Red Blood Count 4.28 X10*6/uL (4.20-5.50); Red Cell Distribution Width 11.9 % (11.0-16.0)
[2023-10-11 11:33] LABS: Alanine Aminotransferase 13 U/L (0-31); Alkaline Phosphatase 79 U/L (39-117); Anion Gap 12 (12-20); Aspartate Amino Transferase 18 U/L (5-31); Bilirubin Total 0.2 mg/dL (0.0-1.0); Blood Urea Nitrogen 13 mg/dL (9-16); C Reactive Protein 1.38 mg/dL (< or = 0.50); Calcium 9.7 mg/dL (8.4-10.2); Carbon Dioxide 30 mmol/L (22-29); Chloride 104 mmol/L (96-108); Estimated Glomerular Filt Rate > 60; Glucose Random 61 mg/dL (60-115); Potassium 3.9 mmol/L (3.3-5.1); Sodium 142 mmol/L (135-145); Total Protein 8.1 g/dL (6.5-8.0)
[2023-10-11 11:38] LABS: HBS Num1 8.28 mIU/mL (0-7.99); HBc Num1 0.05 S/CO (0.00-0.79); HBsAGNum1 0.38 S/CO (0.00-0.99); Hepatitis A Antibody IgM 0.14 Index (0-0.79); Hepatitis B Core Antibody Nonreactive (Nonreactive); Hepatitis B Surface Antigen Negative (Negative); ~Hepatitis A Antibody IgM Nonreactive (Nonreactive); ~Hepatitis C Antibody Nonreactive (Nonreactive)
[2023-10-11 11:55] LABS: Erythrocyte Sedimentation Rate 69 MM/HR (0-20)
[2023-10-11 14:32] LABS: HBS Num2 9.16 mIU/mL (0-7.99); HBS Num3 8.59 mIU/mL (0-7.99)
[2023-10-11 14:33] LABS: ~Hepatitis B Surface Antibody GRAYZONE (Nonreactive)
[2023-10-13 22:04] LABS: TS Negative Control Passed; TS Panel A 0; TS Panel B 1; TS Positive Control Passed; TSpotTB Negative (Negative)
== END 2023-10-11 08:20 | disposition home or self-care (01) ==
LOC: HO.10HDL 08:19
PROVIDERS: Visit Provider Student in an Organized Health Care Education/Training Program
DX: Z13.89 Encounter for screening for other disorder (principal)
CPT/HCPCS: 36415; 80053; 85025; 85652; 86140; 86481; 86704; 86706; 86709; 86803; 87340

== ENCOUNTER 2023-12-13 07:31 | Outpatient (REF) | payer MEDICARE, SELFPAY ==
[2023-12-13 10:22] LABS: MANUAL DIFF FLAG NO
[2023-12-13 10:28] LABS: Basophils Percent Auto 0.5 % (0-2); Eosinophils Percent Auto 0.5 % (0-4); Hematocrit 40.3 % (37.0-47.0); Hemoglobin 12.9 g/dl (12.0-16.0); Imm Gran Abs Auto 0.03 X10*3/uL (0.00-0.03); Imm Gran Pct Auto 0.3 % (0.0-0.4); Lymphocytes Percent Auto 34.5 % (20-40); Mean Corpuscular Hemoglobin 32.5 pg (27.0-33.0); Mean Corpuscular Volume 101.5 fL (80.0-98.0); Mean Platelet Volume 8.7 fL (9.4-12.3); Monocytes Absolute Auto 0.9 X10*3/uL (0.1-1.2); Neutrophils Absolute Auto 4.6 x10*3/uL (2.0-8.3); Neutrophils Percent Auto 53.2 % (45-73); Platelet Count 306 X10*3/uL (160-400); Red Blood Count 3.97 X10*6/uL (4.20-5.50); Red Cell Distribution Width 11.9 % (11.0-16.0); White Blood Count 8.6 X10*3/uL (4.8-10.8)
[2023-12-13 10:58] LABS: Alanine Aminotransferase 13 U/L (0-31); Albumin Level 3.8 g/dL (3.5-5.0); Alkaline Phosphatase 70 U/L (39-117); Anion Gap 15 (12-20); Aspartate Amino Transferase 18 U/L (5-31); Bilirubin Total 0.2 mg/dL (0.0-1.0); Blood Urea Nitrogen 15 mg/dL (9-16); C Reactive Protein 0.53 mg/dL (< or = 0.50); Calcium 9.3 mg/dL (8.4-10.2); Carbon Dioxide 26 mmol/L (22-29); Chloride 105 mmol/L (96-108); Estimated Glomerular Filt Rate > 60; Glucose Random 84 mg/dL (60-115); Potassium 3.8 mmol/L (3.3-5.1); Sodium 142 mmol/L (135-145); Total Protein 7.5 g/dL (6.5-8.0)
[2023-12-13 11:29] LABS: Erythrocyte Sedimentation Rate 60 MM/HR (0-20)
== END 2023-12-13 07:32 | disposition home or self-care (01) ==
LOC: HO.HMGCLDS 07:31
PROVIDERS: PCP Internal Medicine; Visit Provider Student in an Organized Health Care Education/Training Program
DX: Z87.39 Personal history of other diseases of the musculoskeletal system and connective tissue (principal)
CPT/HCPCS: 36415; 80053; 85025; 85652; 86140

== ENCOUNTER 2023-12-15 07:52 | Outpatient (AMB) | payer MEDICARE, SELFPAY ==
--- NOTE | 2023-12-15 07:55 | MHC.OFFVIS ---
Vital Signs 12/15/23 08:06 Height 5 ft 7 in Weight 160 lb 4.417 oz BMI 25.1 BP 124/62 Blood Pressure Location Rt brachial Position Sitting Pulse 76 Pulse Source Pulse Oximeter Pulse Oximetry (%) 99 Oxygen Delivery Method Room Air Intake Visit Reasons: PMR Intake Note: Patient last seen 10/11/23 presents today for follow up and test results. Tube Laser Operator Required: No Accompanied by: Self / Same As Patient Allergies penicillin V Allergy (Unknown, Verified 12/15/23 08:07) Unknown Medication List - Last Reconciled 12/15/23 by Christopher Orozco MD calcium carbonate (Calcium 500) 500 mg PO DAILY cholecalciferol (vitamin D3) 50 mcg PO DAILY cranberry wyov-E-wnsruioe coag 450-30-50 sx-fu-xcqprnk (Nmjjzqsgw-Xlqkcnwyc-Gbzjlcq C) tabs PO cyanocobalamin (vitamin B-12) 1,000 mcg PO DAILY epinephrine (Auvi-Q) IM omega-3 fatty acids (Fish Oil Concentrate) 1,000 mg PO DAILY prednisone 6 mg (6 x 1 mg) PO DAILY eqqdqedd-ddqu-oaqza-oreg-capry 100 mg-150 mg- 50 mg-150 mg caps PO HPI Comments Details: 67-year-old female with PMR returns for follow-up. She remains on prednisone 3 mg Twice daily. She continues to feel about the same. Generalized stiffness all day but no significant pain. Has not had any change in function. Gets intermittent swelling of her fingers Most recent history by Dr. Cabrera 06/2023: The patient returns for evaluation of her PMR. We have been trying to taper her prednisone. At last visit she was at 5 mg in morning and 2.5 mg in the evening. Each month we dropped the morning dose by 1 mg. By the time she got to 3 mg in the morning and 2.5 mg in the evening she felt like she was having some more pain in the hips and the shoulders. She now feels she still has about the same pain at 2.5 mg b.i.d.. There has been no headache, jaw claudication or visual disturbance. She has not lost any weight. She has not noticed any decrement in her functioning. She does get pain in the right buttock and groin area while she is walking. She did not tolerate the alendronate, it gave her some nausea. She was taking this for osteopenia in the face of her prednisone use. [facility] Medical History Polymyalgia rheumatica History of kidney stones Diverticulitis Arthritis Kedar's disease Surgical History H/O toe surgery Hx of wisdom tooth extraction Family History Sister Ovarian cancer Paternal Grandmother History of breast cancer Mother Rheumatoid arthritis Other Family history of arthritis Social History Alcohol intake: current Alcohol intake frequency: holidays/special occasions only Alcohol type: wine Patient Tobacco Use Status: Never used Tobacco Review of Systems Const Denies fever(s) and Denies weight loss Eyes Denies blurry vision Musc Reports arthralgias, Reports joint swelling and Reports stiffness Physical Exam Vital Signs: Last Vital Signs Pulse 76 12/15/23 08:06 BP 124/62 12/15/23 08:06 Pulse Ox 99 12/15/23 08:06 Oxygen Delivery Method Room Air 12/15/23 08:06 BMI result Body Mass Index 25.1 Const General: cooperative, healthy appearing and comfortable Nutritional Appearance: average body habitus Orientation/consciousness: patient oriented x3 Limitations: no limitations HEENT Head: Yes normocephalic and Yes atraumatic Mouth: moist mucous membranes Resp Effort & Inspection: normal respiratory effort and able to speak in complete sentences Cardio Rate: regular rate Rhythm: regular rhythm Skin General skin exam: no rashes or lesions noted Neuro General: patient oriented x3 Extrem Other: Cool extremities consistent with Raynaud's Livedo reticularis of hands and forearms Normal range of motion of shoulders without pain Normal nailfold capillaroscopy Assessment & Plan Assessment & Plan (1) History of polymyalgia rheumatica: Comment: Onset 03/2022, prednisone started Code(s): Z87.39 - Personal history of other diseases of the musculoskeletal system and connective tissue Category: Medical Plan: 67-year-old female with PMR returns for follow-up. She remains on prednisone 3 mg Twice daily. Eye exam today she has multiple swollen PIP is. Some are tender. She has developed a negative rheumatoid arthritis. Will need to start DMARDs. We had a long conversation about DMARDs. Discussed risks and benefits of methotrexate. Patient had a lot of concerns about methotrexate as her mother did not tolerate it. Patient agreed to proceed. Start methotrexate 4 tabs once weekly for 2 weeks then 6 tabs once weekly Start folic acid 1 mg daily Remain on prednisone 6 mg daily Labs before next visit in 2 months (2) Osteopenia: Comment: 12/2022 T scores: LS spine -1.6, fem neck -1.0, tot fem -1.2 alendronate started 02/10/2023 could not be tolerated. Code(s): M85.80 - Other specified disorders of bone density and structure, unspecified site Category: Medical Qualifiers: Osteopenia location: multiple sites Qualified Code(s): M85.89 - Other specified disorders of bone density and structure, multiple sites Plan: Given residential systemic steroid use, patient likely needs to be on antiresorptive therapy however we had a very long conversation today about the need for methotrexate. We will discuss further next visit (3) Raynauds disease: Code(s): I73.00 - Raynaud's syndrome without gangrene Category: Medical Qualifiers: Raynaud?s-associated gangrene presence: without gangrene Qualified Code(s): I73.00 - Raynaud's syndrome without gangrene Plan: Will check further sub serologies Plan I spent 45 minutes reviewing patient's chart, evaluating patient, ordering diagnostic workup, counseling patient and documenting in the chart Orders: Orders Comprehensive Met. Panel 2 Months Z79.631 - terminal worker (current) use of antimetabolite agent Anti Extractable Nuclear Ag 2 Months M32.9 - Systemic lupus erythematosus, unspecified Anti DNA DS Antibody 2 Months M32.9 - Systemic lupus erythematosus, unspecified DNA Double Stranded-Crithidia 2 Months M32.9 - Systemic lupus erythematosus, unspecified Protein Creatinine Ratio, Ur 2 Months M32.9 - Systemic lupus erythematosus, unspecified Scleroderma 12 Panel 2 Months M34.9 - Systemic sclerosis, unspecified Complete Blood Count Auto Diff 2 Months Z79.631 - jail (current) use of antimetabolite agent C Reactive Protein 2 Months Z79.631 - jail (current) use of antimetabolite agent Erythrocyte Sedimentation Rate 2 Months Z79.631 - terminal worker (current) use of antimetabolite agent Complement C3 2 Months M32.9 - Systemic lupus erythematosus, unspecified Complement C4 2 Months M32.9 - Systemic lupus erythematosus, unspecified Sjogren's Antibodies 2 Months M32.9 - Systemic lupus erythematosus, unspecified UA w Microscopic 2 Months M32.9 - Systemic lupus erythematosus, unspecified JACKELYN Reflex Titer and Pattern 2 Months M32.9 - Systemic lupus erythematosus, unspecified Medications: New methotrexate sodium Take 4 tabs once weekly for 2 weeks then 6 tabs once weekly 64 tabs 0RF folic acid 1 mg PO DAILY 90 tabs 1RF Coding Level of Care Code Est Pt Level 5 (42977) Diagnoses History of polymyalgia rheumatica Z87.39 Osteopenia of multiple sites M85.89 Osteopenia location: multiple sites Raynaud's disease without gangrene I73.00 Raynaud?s-associated gangrene presence: without gangrene
[2023-12-15 08:06] VITALS: BP 124/62; PULSE 76; O2SAT 99; BMI 25.1
== END 2023-12-15 08:39 | disposition home or self-care (01) ==
PROVIDERS: PCP Internal Medicine; Visit Provider Student in an Organized Health Care Education/Training Program
DX: M35.3 Polymyalgia rheumatica (principal); Z87.39 Personal history of other diseases of the musculoskeletal system and connective tissue; M85.89 Other specified disorders of bone density and structure, multiple sites; I73.00 Raynaud's syndrome without gangrene
CPT/HCPCS: 99215

== ENCOUNTER → 2023-12-15 07:52 | Outpatient (BNVA) | payer MEDICARE, SELFPAY | PROVIDERS: PCP Internal Medicine; Visit Provider Student in an Organized Health Care Education/Training Program | DX: M85.89 Other specified disorders of bone density and structure, multiple sites (principal); I73.00 Raynaud's syndrome without gangrene; Z87.39 Personal history of other diseases of the musculoskeletal system and connective tissue | CPT/HCPCS: 99212 ==

== ENCOUNTER 2023-12-30 08:11 | Outpatient (REF) | payer MEDICARE, SELFPAY ==
[2023-12-30 10:52] LABS: Anion Gap 12 (12-20); Blood Urea Nitrogen 13 mg/dL (9-16); Carbon Dioxide 24 mmol/L (22-29); Chloride 106 mmol/L (96-108); Estimated Glomerular Filt Rate > 60; Glucose Random 88 mg/dL (60-115); Potassium 3.4 mmol/L (3.3-5.1); Sodium 139 mmol/L (135-145)
[2023-12-30 11:09] LABS: Free T4 (Free Thyroxine) 1.05 ng/dL (0.71-1.85); Thyroid Stimulating Hormone 1.45 uIU/mL (0.32-4.0)
[2023-12-30 11:15] LABS: Free T4 (Free Thyroxine) 1.08 ng/dL (0.71-1.85)
[2023-12-31 18:49] LABS: Thyroid Peroxidase Antibodies 6 IU/mL (<9)
== END 2023-12-30 08:12 | disposition home or self-care (01) ==
LOC: HO.HMGCLDS 08:11
PROVIDERS: PCP Internal Medicine; Visit Provider Internal Medicine
DX: M35.3 Polymyalgia rheumatica (principal); E06.3 Autoimmune thyroiditis
CPT/HCPCS: 36415; 80048; 84439; 84443; 86376

== ENCOUNTER 2024-08-03 07:29 | Outpatient (REF) | payer MEDICARE, SELFPAY ==
--- OUTSIDE RECORDS SUMMARY | 2024-08-03 07:31 | XMS_ITS ---
Author Organization [facility] Address [address] [place] [address] Care Team Providers Care Home Lighting Adviser Name Role Phone Vasyl Carranza MD Primary Care Provider Michael Zuniga Jr REASON FOR VISIT NEW INSURANCE Encounters Encounter Location Date Provider Diagnosis [facility] [address] [place] [address] 05/25/2023 Michael Lopes Jr PLAN OF TREATMENT No Information
--- OUTSIDE RECORDS SUMMARY | 2024-08-03 07:31 | XMS_ITS ---
Author Organization [facility] Address [address] [place] [address] Care Team Providers Care Director Presales Name Role Phone Vasyl Carranza MD Primary Care Provider Michael Zuniga Jr Unavailable ALLERGIES Allergen (clinical drug ingredient) Drug/Non Drug Allergy documented on EMR Reaction Allergy Type Onset Date Status Penicillin Unknown Drug Allergy Active REASON FOR VISIT Patient presents today for a colon screening MEDICATIONS Medication SIG (Take, Route, Frequency, Duration) Notes Start Date End Date Status MiraLax (colon prep) 17 GM/SCOOP mixed with Gatorade or Crystal Light Orally begin at 5:00 p.m. the day before the procedure for 1 day 06/17/2023 Active Multivitamin Active Fish Oil Active predniSONE 5 MG 1 tablet Orally Once a day, taper as directed Active SOCIAL HISTORY Tobacco Use: Social History Observation Description Date Details (start date - stop date) Never Smoker NA - NA Sex Assigned At : Social History Observation Description Sex Assigned At Unknown Tobacco Use/Smoking Question Answer Notes Patient is a nonsmoker Alcohol Screen Question Answer Notes Did you have a drink containing alcohol in the p ast year? No Points 0 Interpretation Negative PROBLEMS Problem Type ICD Code Onset Dates Problem Status W/U Status Risk SNOMED Code Notes Problem Colon cancer screening (Z12.11) Active confirmed 031097374 Problem Long-term current use of high risk medication other than anticoagulant (Z79.899) Active confirmed [id number] VITAL SIGNS BMI 25.06 kg/m2 06/17/2023 Blood pressure systolic 00 mm Hg 06/17/20 23 Blood pressure diastolic 00 mm Hg 023 Height 5 ft 7 in in 06/17/2023 Temperature 96.2 degrees Fahrenheit 06/17/20 23 Weight 160 lbs 06/17/2023 Encounters Encounter Location Date Provider Diagnosis [facility] [address] [place] [address] 06/17/2023 Michaeljeff Lopes Jr Colon cancer screening Z12.11 and Long-term current use of high risk medication other than anticoagulant Z79.899 ASSESSMENTS Encounter Date Diagnosis Assessment Notes Treatment Notes Treatment Clinical Notes 06/17/2023 Colon cancer screening (ICD-10 - Z12.11) Colonoscopy material was printed 06/17/2023 Long-term current use of high risk medication other than anticoagulant (ICD-10 - Z79.899) PLAN OF TREATMENT Medication Medication Name Sig Start Date Stop Date Notes MiraLax (colon prep) 17 GM/SCOOP mixed with Gatorade or Crystal Light Orally begin at 5:00 p.m. the day before the procedure for 1 day 06/17/2023 Treatment Notes Assessment Notes Colon cancer screening Colonoscopy mater ial was printed Future Test Test Name Order Date COLONOSCOPY 06/17/2023 Next Appt Details Follow Up: 1 Year, Reason: Progress Notes * Examination Category Sub-Category Detail Notes General Examination GENERAL APPEARANCE: in no ac taqueria distress HEAD: normocephalic EYES: sclera non-icteric NECK/THYROID: no lymphadenopathy HEART: S1, S2 normal, no mu rmurs CHEST: normal shape and exp ansion LUNGS: clear to auscultatio n bilaterally ABDOMEN: soft, nontender, non distended, bowel sounds present, no organomegaly SKIN: anicteric EXTREMITIES: no clubbing, cyanosi s, or edema PSYCH: cognitive function i ntact ORAL CAVITY: mucosa moist
--- OUTSIDE RECORDS SUMMARY | 2024-08-03 07:31 | XMS_ITS | Patient Health Record ---
Author Organization [facility] Address [address] [place] [address] Care Team Providers Care Baccarat Dealer Name Role Phone Vasyl Carranza MD Primary Care Provider Michael Zuniga Jr Unavailable ALLERGIES Allergen (clinical drug ingredient) Drug/Non Drug Allergy documented on EMR Reaction Allergy Type Onset Date Status Penicillin Unknown Drug Allergy Active REASON FOR REFERRAL No Information MEDICATIONS Medication SIG (Take, Route, Frequency, Duration) [...] Problem Colon cancer screening (Z12.11) Active confirmed [id number] Problem Long-term current use of high risk medication other than anticoagulant (Z79.899) Active confirmed [id number] Encounters Encounter Location Date Provider Diagnosis [facility] Outpatient [address] [place], [place] [phone] 08/10/2023 Michael Lopes Jr Encounter for screening colonoscopy Z12.11 ASSESSMENTS Encounter Date Diagnosis Assessment Notes Treatment Notes Treatment Clinical Notes 08/10/2023 Encounter for screening colonoscopy (ICD-10 - Z12.11) PLAN OF TREATMENT Future Test Test Name Order Date COLONOSCOPY 06/17/2023 Insurance Providers Payer Name Payer Address Payer Phone Subscriber Number Group Number Insured Name Patient Relationship to Insured Coverage Start Date Coverage End Date MEDICARE OF [place] [address] [place] [id number] [phone] [id number] LANCE WYMAN Self - patient is the insured MEDEX ATTN CLAIMS [address] [place] [address] [id number] LANCE WYMAN Self - patient is the insured MEDICAL (GENERAL) HISTORY Medical History History ICD Code Nephrolithiasis Polymyalgia rheumatica Colonoscopy 01/04/09, diverticulosis, ten- year followup Osteoporosis Osteoarthritis ASCUS/HPV Surgical History Surgery Date(Month/Year) Toe surgery [place] teeth extractions
--- OUTSIDE RECORDS SUMMARY | 2024-08-03 07:31 | XMS_ITS ---
Author Organization [facility] Address [address] [place] [address] Care Team Providers Care Biology Adjunct Instructor Name Role Phone Vasyl Carranza MD Primary Care Provider Michael Zuniga Jr Unavailable REASON FOR VISIT screening Encounters Encounter Location Date Provider Diagnosis [facility] [place] [address] [place], [place] [phone] 08/10/2023 Michael Lopes Jr Encounter for screening colonoscopy Z12.11 ASSESSMENTS Encounter Date Diagnosis Assessment Notes Treatment Notes Treatment Clinical Notes 08/10/2023 Encounter for screening colonoscopy (ICD-10 - Z12.11) PLAN OF TREATMENT No Information
[2024-08-03 10:03] LABS: MANUAL DIFF FLAG NO
[2024-08-03 10:08] LABS: Basophils Percent Auto 0.5 % (0-2); Eosinophils Absolute Auto 0.1 X10*3/uL (0.0-0.4); Eosinophils Percent Auto 0.9 % (0-4); Imm Gran Abs Auto 0.01 X10*3/uL (0.00-0.03); Imm Gran Pct Auto 0.2 % (0.0-0.4); Lymphocytes Absolute Auto 2.2 X10*3/uL (1.2-4.9); Mean Corpuscular HGB Conc 32.5 g/dl (31.0-35.0); Mean Corpuscular Hemoglobin 32.9 pg (27.0-33.0); Mean Corpuscular Volume 101.3 fL (80.0-98.0); Mean Platelet Volume 8.7 fL (9.4-12.3); Monocytes Absolute Auto 0.8 X10*3/uL (0.1-1.2); Monocytes Percent Auto 14.1 % (2-11); Neutrophils Absolute Auto 2.4 x10*3/uL (2.0-8.3); Neutrophils Percent Auto 44.3 % (45-73); Platelet Count 316 X10*3/uL (160-400); Red Blood Count 3.95 X10*6/uL (4.20-5.50); Red Cell Distribution Width 11.5 % (11.0-16.0); White Blood Count 5.5 X10*3/uL (4.8-10.8)
[2024-08-03 10:25] LABS: Alanine Aminotransferase 12 U/L (0-31); Aspartate Amino Transferase 25 U/L (5-31); C Reactive Protein 0.54 mg/dL (< or = 0.50); Estimated Glomerular Filt Rate > 60
[2024-08-03 10:45] LABS: Erythrocyte Sedimentation Rate 64 MM/HR (0-20)
[2024-08-04 09:44] LABS: Complement C3 145 mg/dL (83-193)
== END 2024-08-03 07:30 | disposition home or self-care (01) ==
LOC: HO.HMGCLDS 07:29
PROVIDERS: PCP Internal Medicine; Visit Provider Internal Medicine Rheumatology
DX: M19.90 Unspecified osteoarthritis, unspecified site (principal); M35.3 Polymyalgia rheumatica
CPT/HCPCS: 36415; 82550; 82565; 84450; 84460; 85025; 85652; 86140; 86160

== ENCOUNTER 2024-09-20 09:39 | Outpatient (REF) | payer MEDICARE, SELFPAY ==
--- OUTSIDE RECORDS SUMMARY | 2024-09-20 09:59 | XMS_ITS ---
Author Organization [facility] Address [address] [place] [address] Care Team Providers Care Sand Conditioner Machine Name Role Phone Vasyl Carranza MD Primary [...] Problem Colon cancer screening (Z12.11) Active confirmed [id number] Problem Long-term current use of high risk medication other than anticoagulant (Z79.899) Active confirmed 298446940 VITAL SIGNS BMI 25.06 kg/m2 06/17/2023 Blood pressure systolic 00 mm Hg 06/17/20 23 Blood pressure diastolic 00 mm Hg 023 Height 5 ft 7 in in 06/17/2023 Temperature 96.2 degrees Fahrenheit 06/17/20 23 Weight 160 lbs 06/17/2023 Encounters Encounter Location Date Provider Diagnosis [facility] [address] [place] [address] 06/17/2023 Michaeljeff Lopes Jr Colon cancer screening [...] General Examination GENERAL APPEARANCE: in no ac yuhaaviatam distress HEAD: normocephalic EYES: sclera non-icteric NECK/THYROID: no lymphadenopathy HEART: S1, S2 normal, no mu rmurs CHEST: normal shape and exp ansion LUNGS: clear to auscultatio n bilaterally ABDOMEN: soft, nontender, non distended, bowel sounds present, no organomegaly SKIN: anicteric EXTREMITIES: no clubbing, cyanosi s, or edema PSYCH: cognitive function i ntact ORAL CAVITY: mucosa moist
--- OUTSIDE RECORDS SUMMARY | 2024-09-20 09:59 | XMS_ITS | Patient Health Record ---
Author Organization [facility] Address [address] [place] [address] Care Team Providers Care Store Sales Consultant Name Role Phone Vasyl Carranza MD Primary [...] Problem Colon cancer screening (Z12.11) Active confirmed [id number] Problem Long-term current use of high risk medication other than anticoagulant (Z79.899) Active confirmed [id number] PLAN OF TREATMENT Future Test Test Name Order Date COLONOSCOPY 06/17/2023 Insurance Providers Payer Name Payer Address Payer Phone Subscriber Number Group Number Insured Name Patient Relationship to Insured Coverage Start Date Coverage End Date MEDICARE OF [place] [address] [place] [address] [id number] LANCE WYMAN Self - patient is the insured MEDEX ATTN CLAIMS [address] [place] [address] [phone] [id number] GARO , LANCE Self - patient is the insured MEDICAL (GENERAL) HISTORY Medical History History ICD Code Nephrolithiasis Polymyalgia rheumatica Colonoscopy 01/04/09, diverticulosis, ten- year followup Osteoporosis Osteoarthritis ASCUS/HPV Surgical History Surgery Date(Month/Year) Toe surgery [place] teeth extractions
--- OUTSIDE RECORDS SUMMARY | 2024-09-20 09:59 | XMS_ITS ---
Author Organization [facility] Address [address] [place] [address] Care Team Providers Care Weaver Axminster Name Role Phone Vasyl Carranza MD Primary Care Provider Michael Zuniga Jr REASON FOR VISIT NEW INSURANCE Encounters Encounter Location Date Provider Diagnosis [facility] [address] [place] [address] 05/25/2023 Michael Lopes Jr PLAN OF TREATMENT No Information
--- OUTSIDE RECORDS SUMMARY | 2024-09-20 09:59 | XMS_ITS ---
Author Organization [facility] Address [address] [place] [address] Care Team Providers Care Kiln Puller Name Role Phone Vasyl Carranza MD Primary Care Provider Michael Zuniga Jr Unavailable REASON FOR VISIT screening Encounters Encounter Location Date Provider Diagnosis [facility] [place] [address] [place], [place] [phone] 08/10/2023 Michael Lopes Jr Encounter for screening colonoscopy Z12.11 ASSESSMENTS Encounter Date Diagnosis Assessment Notes Treatment Notes Treatment Clinical Notes 08/10/2023 Encounter for screening colonoscopy (ICD-10 - Z12.11) PLAN OF TREATMENT No Information
[2024-09-20 13:09] LABS: MANUAL DIFF FLAG NO
[2024-09-20 13:38] LABS: Basophils Absolute Auto 0.1 X10*3/uL (0.0-0.2); Basophils Percent Auto 0.6 % (0-2); Eosinophils Percent Auto 0.5 % (0-4); Hematocrit 40.9 % (37.0-47.0); Hemoglobin 13.3 g/dl (12.0-16.0); Imm Gran Abs Auto 0.03 X10*3/uL (0.00-0.03); Imm Gran Pct Auto 0.3 % (0.0-0.4); Lymphocytes Absolute Auto 2.2 X10*3/uL (1.2-4.9); Lymphocytes Percent Auto 25.1 % (20-40); Mean Corpuscular HGB Conc 32.5 g/dl (31.0-35.0); Mean Corpuscular Hemoglobin 32.5 pg (27.0-33.0); Mean Platelet Volume 9.4 fL (9.4-12.3); Monocytes Absolute Auto 1.4 X10*3/uL (0.1-1.2); Monocytes Percent Auto 15.7 % (2-11); Neutrophils Percent Auto 57.8 % (45-73); Platelet Count 286 X10*3/uL (160-400); Red Blood Count 4.09 X10*6/uL (4.20-5.50); Red Cell Distribution Width 11.8 % (11.0-16.0); White Blood Count 8.6 X10*3/uL (4.8-10.8)
[2024-09-20 13:56] LABS: Alanine Aminotransferase 13 U/L (0-31); Aspartate Amino Transferase 29 U/L (5-31); C Reactive Protein 0.65 mg/dL (< or = 0.50); Estimated Glomerular Filt Rate > 60
[2024-09-20 14:28] LABS: Erythrocyte Sedimentation Rate 67 MM/HR (0-20)
== END 2024-09-20 09:40 | disposition home or self-care (01) ==
LOC: HO.HMGCLDS 09:39
PROVIDERS: PCP Internal Medicine; Visit Provider Internal Medicine Rheumatology
DX: M19.90 Unspecified osteoarthritis, unspecified site (principal); M35.3 Polymyalgia rheumatica
CPT/HCPCS: 36415; 82565; 84450; 84460; 85025; 85652; 86140

== ENCOUNTER 2024-11-01 11:11 | Outpatient (REF) | payer MEDICARE, SELFPAY ==
[2024-11-09 07:54] LABS: HPV Genotype 16 Negative (Negative); HPV Genotype 18 Negative (Negative); HPV High Risk Positive (Negative)
== END 2024-11-01 11:12 | disposition home or self-care (01) ==
LOC: HO.LNP 11:11
PROVIDERS: PCP Internal Medicine; Visit Provider Advanced Practice Midwife
DX: Z01.419 Encounter for gynecological examination (general) (routine) without abnormal findings (principal); Z11.51 Encounter for screening for human papillomavirus (HPV); R87.610 Atypical squamous cells of undetermined significance on cytologic smear of cervix (ASC-US); R87.810 Cervical high risk human papillomavirus (HPV) DNA test positive
CPT/HCPCS: 87626; 88175; G0101; Q0091

== ENCOUNTER 2024-11-01 11:11 | Outpatient (AMB) | payer MEDICARE, SELFPAY ==
--- NOTE | 2024-11-01 11:13 | MHC.OFFVIS ---
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 She is doing well with ocean lifeguard concerns: some leakage of urine leakage. Currently not sexually active. Denies any vaginal dryness or irritation. STI testing offered; she declined. Attempting to eat a healthy diet with calcium and vitamin D and stays active with exercise. Last pap smear/colpo-history of ASCUS HPV positive. Last Pap 2023-negative. Last mammogram; 2024-at [facility] no records available. Colonoscopy is UTD. [facility] Medical History (Updated 11/01/24 @ 11:23 by Cheyenne Chirinos CNM) Polymyalgia rheumatica History of kidney stones Diverticulitis Arthritis Kedar's disease Surgical History (Updated 11/01/24 @ 11:31 by Cheyenne Chirinos CNM) H/O toe surgery Hx of wisdom tooth extraction Family History Sister Ovarian cancer Paternal Grandmother History of breast cancer Mother Rheumatoid arthritis Other Family history of arthritis Social History Alcohol intake: current Alcohol intake frequency: holidays/special occasions only Alcohol type: wine Patient Tobacco Use Status: Never used Tobacco Female Reproductive History Menstrual Total pregnancies: 1 Full term: 1 Number of Living Children: 1 Date of last pap smear: 09/29/23 (neg pap and hpv) History of abnormal pap smear: Yes (7 +hpv 7/22 ascus +hpv 9/22 colpo) Date of Mammogram: 10/02/24 (@[facility]) Date of last Bone Density Screenin01/06/23 Review of Systems Const All systems reviewed & are unremarkable except as noted in HPI and below Reports as per HPI Eyes Reports no additional complaints ENT Reports no additional complaints Card Reports no additional complaints Resp Reports no additional complaints GI Reports as per HPI and Reports no additional complaints Reports as per HPI Musc Reports no additional complaints Skin/Breast Reports as per HPI Neuro Reports no additional complaints Psych Reports no additional complaints Endo Reports no additional complaints Chris/Lymph Reports no additional complaints Aller/Immun Reports no additional complaints Physical Exam Vital Signs: BMI result Body Mass Index 23.5 Const General: cooperative, healthy appearing, no acute distress, well developed and alert Orientation/consciousness: patient oriented x3 HEENT Head: Yes normal to inspection Eyes General: appearance normal, both eyes and all related structures Neck Neck: Yes normal visual inspection Thyroid: Thyroid normal Chest Chest palpation & inspection: normal inspection of the chest and other (no puckering, dimpling, peau de orange, retraction, discharge, masses) Breast/axilla inspection: normal inspection of the breasts Breast/axilla palpation: normal palpation of the breasts Resp Effort & Inspection: normal respiratory effort GI Inspection: Yes normal to inspection Palpation (GI): Soft to palpation Rectal Exam - Female: deferred General: Yes bladder normal to palpation External Female Exam: normal external appearance and normal appearance of the urethra Speculum Exam - Vagina: normal appearance of the vagina, normal palpation, normal vaginal discharge and vagina atrophic Speculum Exam - Cervix: normal appearance of the cervix, normal palpation and Other cervical findings present (Bled slightly with Pap) Bimanual exam- vagina & uterus: normal bimanual exam, normal palpation, uterine size normal, bladder normal to palpation, normal palpation and non-tender Bimanual Exam- Adnexa, other: no masses Skin General skin exam: no rashes or lesions noted Rashes: no rashes Neuro General: patient oriented x3 Cognition (Neuro): normal cognition Extrem General: Yes normal to inspection Psych Attitude: cooperative Thought process: Normal thought process present Assessment & Plan Assessment & Plan (1) ASCUS with positive high risk HPV cervical: Code(s): R87.610 - Atypical squamous cells of undetermined significance on cytologic smear of cervix (ASC-US); R87.810 - Cervical high risk human papillomavirus (HPV) DNA test positive Category: Medical (2) Encounter for well woman exam with routine gynecological exam: Code(s): Z01.419 - Encounter for gynecological examination (general) (routine) without abnormal findings Category: Medical Plan Discussed: Current recommendations for pap smears per ASCCP guidelines. Pap obtained. Breast awareness, periodic self breast exams and yearly mammogram. Maintain a healthy lifestyle, well balanced diet including Calcium 1,200 mg and Vitamin D 600 IU daily, and routine exercise. Contact the office with any postmenopausal bleeding. Patient verbalizes understanding and agrees to the plan of care. She was given opportunity to ask questions and all questions were answered to the best of my ability. RTO in 1 year for annual ocean lifeguard exam. This note is constructed using voice recognition software. While every effort has been made to ensure accuracy, municipal bond trader errors may have been included. Orders: Orders HPV High risk Today R87.610 - Atypical squamous cells of undetermined significance on cytologic smear of cervix (ASC-US), R87.810 - Cervical high risk human papillomavirus (HPV) DNA test positive, Z01.419 - Encounter for gynecological examination (general) (routine) without abnormal findings Pap Smear Today R87.610 - Atypical squamous cells of undetermined significance on cytologic smear of cervix (ASC-US), R87.810 - Cervical high risk human papillomavirus (HPV) DNA test positive, Z01.419 - Encounter for gynecological examination (general) (routine) without abnormal findings Coding Level of Care Code Est Pt Prev Care >65y([address]280) Diagnoses ASCUS with positive high risk HPV cervical R87.610; R87.810 Encounter for well woman exam with routine gynecological exam Z01.419
[2024-11-01 11:14] VITALS: BP 112/64; BMI 23.5
--- OUTSIDE RECORDS SUMMARY | 2024-11-01 13:37 | XMS_ITS | Patient Health Record ---
Author Organization [facility] Address [address] [place] [address] Care Team Providers Care Application Security Developer Name Role Phone Vasyl Carranza MD Primary Care Provider Michael Zuniga Jr Unavailable [phone] Allergies Allergen (clinical drug ingredient) Drug/Non Drug Allergy documented on EMR Reaction Allergy Type Onset Date Status Penicillin Unknown Drug Allergy Active Reason For Referral No Information Medications Medication SIG (Take, Route, Frequency, Duration) Notes Start Date End Date Status MiraLax (colon prep) 17 GM/SCOOP mixed with Gatorade or Crystal Light Orally begin at 5:00 p.m. the day before the procedure for 1 day 06/17/2023 Active Multivitamin Active Fish Oil Active predniSONE 5 MG 1 tablet Orally Once a day, taper as directed Active Social History Tobacco Use: Social History Observation Description Date Details (start date - stop date) Never Smoker NA - NA Tobacco Use/Smoking Question Answer Notes Patient is a nonsmoker Alcohol Screen Question Answer Notes Did you have a drink containing alcohol in the p ast year? No Points 0 Interpretation Negative Problems Problem Type SNOMED Code ICD Code Onset Dates Problem Status W/U Status Risk Notes Problem [id number] Colon cancer screening (Z12.11) Active confirmed Problem [id number] Long-term curren t use of high risk medication other than anticoagulant (Z79.899) Active confirmed Plan Of Treatment Future Test Test Name Order Date COLONOSCOPY 06/17/2023 Insurance Providers Payer Name Payer Address Payer Phone Subscriber Number Group Number Insured Name Patient Relationship to Insured Coverage Start Date Coverage End Date MEDICARE OF [place] [address] [place] [id number] [phone] [id number] LANCE WYMAN Self - patient is the insured MEDEX ATTN CLAIMS [address] [place] [address] [id number] LANCE WYMAN Self - patient is the insured Medical (General) History Medical History History ICD Code Nephrolithiasis Polymyalgia rheumatica Colonoscopy 01/04/09, diverticulosis, ten- year followup Osteoporosis Osteoarthritis ASCUS/HPV Surgical History Surgery Date(Month/Year) Toe surgery [place] teeth extractions
--- OUTSIDE RECORDS SUMMARY | 2024-11-01 13:37 | XMS_ITS ---
Author Organization [facility] Address [address] [place] [address] Care Team Providers Care Trench Digger Helper Name Role Phone Vasyl Carranza MD Primary Care Provider Michael Zuniga Jr [phone] REASON FOR VISIT screening Encounters Encounter Location Date Provider Diagnosis [facility] [place] Outpatient [address] [place], [place] [phone] 08/10/2023 Michael Lopes Jr Encounter for screening colonoscopy Z12.11 Assessments Encounter Date Diagnosis (ICD Code) Assessment Notes Treatment Notes Treatment Clinical Notes Section Notes 08/10/2023 Encounter for screening colonoscopy (ICD-10 - Z12.11) Plan Of Treatment No Information Progress Notes * LANCE WYMAN LDOB:1955 (68 yo F)Acc No.[id number]:08/10/2023 COLON WITH MAC Patient:?GARO LANCE Gamble Provider:?Michael Lopes MD :1955???Age:67 Y???Sex:Female D ate:08/10/2023 Address: [id number] Pcp:Vasyl Carranza MD Subjective: * Chief Complaints: * ???1. Screening. * Medical History:? Objective: * Vitals:? Assessment: * Assessment: 1.?Encounter for screening c olonoscopy - Z12.11 (Primary)??? Plan: * Treatment: * Procedure Codes:?29853 DIAGN OSTIC COLONOSCOPY, 0529F INTRVL 3+YRS PTS CLNSCP DOCD, 0528F RCMND FLW-UP 10 YRS DOCD * * The named appointment provid er may or may not be the originator of this progress note, and it is not deemed complete until electronically signed by the appointment provider. Sign off status: Pending * Provider:?Michael Lopes MD Date:?0 08/10/2023 Generated for Anne-Marie patino/Daniel/Hernandez on:?11/01/2024 01:36 PM EDT
--- OUTSIDE RECORDS SUMMARY | 2024-11-01 13:37 | XMS_ITS ---
Author Organization [facility] Address [address] [place] [address] Care Team Providers Care Acid Painter Name Role Phone Vasyl Carranza MD Primary Care Provider Michael Zuniga Jr Unavailable Allergies Allergen (clinical drug ingredient) Drug/Non Drug Allergy documented on EMR Reaction Allergy Type Onset Date Status Penicillin Unknown Drug Allergy Active REASON FOR VISIT Patient presents today for a colon screening Medications Medication SIG (Take, Route, Frequency, Duration) [...] Problem Status W/U Status Risk Notes Problem 309263421 Colon cancer screening (Z12.11) Active confirmed Problem 852479731 Long-term curren t use of high risk medication other than anticoagulant (Z79.899) Active confirmed Vital Signs Temperature 96.2 degrees Fahrenheit 06/17/20 23 Blood pressure systolic 00 mm Hg 06/17/20 23 Blood pressure diastolic 00 mm Hg 023 Height 5 ft 7 in in 06/17/2023 Weight 160 lbs 06/17/2023 BMI 25.06 kg/m2 06/17/2023 Encounters Encounter Location Date Provider Diagnosis [facility] [address] [place] [phone] 06/17/2023 Michael Lopes Jr Colon cancer screening Z12.11 and Long-term current use of high risk medication other than anticoagulant Z79.899 Assessments Encounter Date Diagnosis (ICD Code) Assessment Notes Treatment Notes Treatment Clinical Notes Section Notes 06/17/2023 Colon cancer screening (ICD-10 - Z12.11) Colonoscopy material was printed Cheyenne is doing well. We recommended colonoscopy as she is due for this. This will be arranged at her convenience. She is aware of risks and benefits and agrees to proceed. She is advised to stop fish oil one week before the procedure. Followup will be pending the results of the colonoscopy. 06/17/2023 Long-term current use of high risk medication other than anticoagulant (ICD-10 - Z79.899) Cheyenne is doing well. We recommended colonoscopy as she is due for this. This will be arranged at her convenience. She is aware of risks and benefits and agrees to proceed. She is advised to stop fish oil one week before the procedure. Followup will be pending the results of the colonoscopy. Plan Of Treatment Medication Medication Name Sig Start Date Stop [...] Up: 1 Year, Reason: Progress Notes * CURTIS WYMANA LDOB:1955 (67 yo F)Acc No.[id number]:06/17/2023 Progress Notes Patient:?CHEYENNE WYMAN Provider:?Michael Lopes MD :1955???Age:67 Y???Sex:Female D ate:06/17/2023 Address:[address] [place], [place] [id number] Pcp:Vasyl Carranza MD Subjective: * Chief Complaints: * ???1. Patient presents today for a colon screening. * HPI: ???New symptom(s):? Cheyenne is a pleasant 67-year-old woman seen today in consultation. She was previously evaluated in 2008 and with colonoscopy which showed diverticulosis. Ten-year followup was recommended. She has no complaints of rectal bleeding or rectal pain. She has had some occasional constipation. She was diagnosed with colon infection earlier in the year and has had some post infectious aching and leg discomfort. She's been treated with prednisone for polymyalgia rheumatica. She is currently on 5 mg per day. The prednisone has been tapered since she was started on this in March of 2022. * ROS:?General/Constitutional:?Change in appetite?denies.?Fatigue?denies.?ENT:?Patient denies?difficulty swallowing.?Respiratory:?Patient denies?shortness of breath.?Cardiovascular:?Patient denies?chest pain.?Gastrointestinal:?Comments?See HPI for details.?Genitourinary:?Difficulty urinating?denies.?Incontinence?denies.?Musculoskeletal:?Patient denies?muscle aches.?Skin:?Patient denies?pruritis.?Neurologic:?Patient denies?low back pain.?Psychiatric:?Patient denies?mental or physical abuse.? * Medical History:?Nephrolithi asis, Polymyalgia rheumatica, Colonoscopy 01/04/09, diverticulosis, ten-year followup, Osteoporosis, Osteoarthritis, ASCUS/HPV. * Surgical History:?Toe surger y , [place] teeth extractions . * Family History:?Father: aliv e, diagnosed with HTN (hypertension).?Mother: alive, diagnosed with HTN (hypertension).?Siblings: diagnosed with HTN (hypertension).? no known hx of colon ca,polyps or liver ds. * Social History:?Tobacco Use:?Tobacco Use/Smoking?Patient is a?nonsmoker.?Drugs/Alcohol:?Alcohol Screen?Did you have a drink containing alcohol in the past year??No,?Points?0,?Interpretation?Negative.?Miscellaneous:?Marital status: . Occupation: retired. * Medications:?Taking Multivit alvarez , Taking Fish Oil , Taking predniSONE 5 MG Tablet 1 tablet Orally Once a day, taper as directed, Medication List reviewed and reconciled with the patient * Allergies:?Penicillin. Objective: * Vitals:?Wt: 160 lbs, Ht: 5 f t 7 in, BMI:25.06 Index, BP: 00/00 mm Hg, Temp: 96.2. * Examination: ???General Examination: ?GENERAL APPEARANCE:?in no acute distress.?HEAD:?normocephalic.?EYES:?sclera non-icteric.?ORAL CAVITY:?mucosa moist.?NECK/THYROID:?no lymphadenopathy.?SKIN:?anicteric.?HEART:?S1, S2 normal, no murmurs.?LUNGS:?clear to auscultation bilaterally.?CHEST:?normal shape and expansion.?ABDOMEN:?soft, nontender, nondistended, bowel sounds present, no organomegaly .?EXTREMITIES:?no clubbing, cyanosis, or edema.?PSYCH:?cognitive function intact.? Assessment: * Assessment: 1.?Long-term current use of high risk medication other than anticoagulant - Z79.899 (Primary)?2.?Colon cancer screening - Z12.11? Cheyenne is doing well. We rec ommended colonoscopy as she is due for this. This will be arranged at her convenience. She is aware of risks and benefits and agrees to proceed. She is advised to stop fish oil one week before the procedure. Followup will be pending the results of the colonoscopy. Plan: * Treatment: Notes: Colonoscopy material was printed.?? * Procedure Codes:?3017F COLOR ECTAL CA SCREEN DOC REV, G9903 Pt scrn tbco id as non user, G9745 DOC RSN FOR NOT SCREEN/REC F/U HBP * Preventive Medicine:? ??Counseling:?Care goal follow-up plan:?Above Normal BMI Follow-up?Giving encouragement to exercise,?BMI management provided?Yes.? ??Urinary Incontinence:?Urinary Incontinence?Assessment:?Absent,?Plan of care documented:?No, reason not specified.? * Follow Up:?1 Year * * Sign off status: Completed true * Provider:?Michael Lopes MD Date:?08/17/2022 Generated for Anne-Marie patino/Daniel/eTransmitting on:?11/01/2024 01:36 PM EDT History and Physical Notes * HPI (History of Present Illness) Category Sub-Category Detail Notes Category Not es New symptom(s) Cheyenne is a p leasant 67-year-old woman seen today in consultation. She was previously evaluated in 2008 and with colonoscopy which showed diverticulosis. Ten-year followup was recommended. She has no complaints of rectal bleeding or rectal pain. She has had some occasional constipation. She was diagnosed with colon infection earlier in the year and has had some post infectious aching and leg discomfort. She's been treated with prednisone for polymyalgia rheumatica. She is currently on 5 mg per day. The prednisone has been tapered since she was started on this in March of 2022. Examination Category Sub-Category Detail Notes Category Not es General Examination GENERAL APPEARANCE: in no acute di stress HEAD: normocephalic EYES: sclera non-icteric NECK/THYROID: no lymphadenopathy HEART: S1, S2 normal, no mu rmurs CHEST: normal shape and exp ansion LUNGS: clear to auscultatio n bilaterally ABDOMEN: soft, nontender, non distended, bowel sounds present, no organomegaly SKIN: anicteric EXTREMITIES: no clubbing, cyanosi s, or edema PSYCH: cognitive function i ntact ORAL CAVITY: mucosa moist
--- OUTSIDE RECORDS SUMMARY | 2024-11-01 13:37 | XMS_ITS | Continuity of Care Document ---
Author Organization [facility] Address [address] [place] [address]- Care Team Providers Care Coater Hand Name Role Phone Vasyl Carranza MD Primary Care Physician [phone] Encounter 10/24/24 - 10/31/24 [facility] [address], [address] [place] [address]- Attending Physician: Vasyl Carranza MD Admitting Physician: Vasyl Carranza MD Referring Physician: Vasyl Carranza MD Encounter Type: OutPatient One Time Allergies, Adverse Reactions, Alerts Substance Criticality Severity Reaction Reaction Severity Status penicillin [D]Nausea Active Medications BuSpar 5 mg oral tablet See Instructions, 1 tablet By Mouth 3 times a day pt stopped taking med on her own., 0 Refills Start Date: 02/14/07 Status: Ordered Repeat number: 1 Results Radiology Reports * Exam Date Time Procedure Performing Provider Status 10/24/24 10:14 AM MM Digital Mammo Screening Praful Cordova ian; Auth (Verified) Notes: (MM Digital Mammo Screening) Reason For Exam: Z12.31 SCREENING RESULT: MM Digital Mammo Screening PROCEDURE: MM Digital Mammo Screening INDICATION: Screening for breast cancer. No known palpable abnormalities. COMPARISON: RONN dating back to 04/17/2022. TECHNIQUE: Full-field digital CC and MLO 3D tomosynthesis images of both breasts were acquired. Computer-aided detection (CAD) was utilized in the interpretation of this study. DENSITY: The breast tissue is extremely dense, which lowers the sensitivity of mammography. FINDINGS: No suspicious masses, suspicious microcalcifications, or areas of architectural distortion are seen in either breast to suggest malignancy. IMPRESSION: No mammographic evidence of malignancy. RECOMMENDATION: Annual mammographic screening BI-RADS: 1 (Negative) Lay letter mailed to patient WSN: [id number] Ordering Physician: Vasyl Carranza MD Dictated By: Ani Hernández MD, I Dictated Date/Time: 10/24/24 1:58 pm Reviewed By: Ani Hernández MD, I Signed By: Ani Hernández MD, I Signed Date/Time: 10/24/24 1:58 pm Transcribed By: CSB Joint Supervisor Date/Time: 10/24/24 1:56 pm Birads: Patient Care team information Care Team Personnel Name: Vasyl Carranza MD Position: [facility] Outreach Member Role: PCP Address: [address] [place] [address] [place] [address]- Telecom: Care Team Related Persons Name: ROBERTA TREVINO Name: MAYE TREVINO Insurance Providers Guarantor name: LANCE GARO Health Plan Information #: 2 Payer: MEDEX Member Number: [id number] Policy Number: NA Group Number: NA Health Plan Information #: 1 Payer: MEDICARE PART B OUTPT Member Number: [id number] Policy Number: NA Group Number: NA
--- OUTSIDE RECORDS SUMMARY | 2024-11-01 13:37 | XMS_ITS ---
Author Organization [facility] Address [address] [place] [phone] Care Team Providers Care Marketing Communication Manager Name Role Phone Vasly Carranza MD Primary Care Provider Michael Zuniga Jr REASON FOR VISIT NEW INSURANCE Encounters Encounter Location Date Provider Diagnosis [facility] [address] [place] [phone] 05/25/2023 Michael Lopes Jr Plan Of Treatment No Information Progress Notes * MERY WYMANB:[birth year] (67 yo F)Acc No.[id number]:05/25/2023 Patient:?GARO LANCE :1955???Age:67 Y???Sex:Female Address:[address] [place] [address] * true * Date:? Generated for Danettei carey/Daniel/eTransmitting on:?11/01/2024 01:36 PM EDT
== END 2024-11-01 11:43 | disposition home or self-care (01) ==
LOC: HO.HWS 11:12
PROVIDERS: PCP Internal Medicine; Visit Provider Advanced Practice Midwife
DX: Z91.89 Other specified personal risk factors, not elsewhere classified (principal); R87.610 Atypical squamous cells of undetermined significance on cytologic smear of cervix (ASC-US); R87.810 Cervical high risk human papillomavirus (HPV) DNA test positive
CPT/HCPCS: G0101; Q0091

== ENCOUNTER 2024-11-15 13:54 | Outpatient (AMB) | payer MEDICARE, SELFPAY ==
[2024-11-15 14:00] VITALS: BP 122/74; PULSE 69; TEMP 36.2; O2SAT 98; BMI 24.1
--- NOTE | 2024-11-15 14:00 | MHC.PC.OV ---
Vital Signs 11/15/24 14:00 Height 5 ft 7 in Weight 154 lb BMI 24.1 BP 122/74 Blood Pressure Location Lt brachial Position Sitting Pulse 69 Pulse Source Pulse Oximeter Temp 97.2 F Temp Source Axillary Pulse Oximetry (%) 98 Oxygen Delivery Method Room Air Intake Visit Reasons: Routine Gang Knife Fish Chopper Required: No Accompanied by: Self / Same As Patient Allergies penicillin V Allergy (Unknown, Verified 11/15/24 14:01) Unknown Tobacco use date assessed: 11/15/24 Fall risk assessment: No Falls in past year Last assessed Fall Risk: 11/15/24 Dental Screening Dental Screen Date: 11/15/24 Did you have a dental visit in the last 12 months?: Yes Did you have a dental problem in the last 6 months where you did not have access to dental care?: No PFSH Medical History Polymyalgia rheumatica History of kidney stones Diverticulitis Arthritis Kedar's disease Surgical History History of colonoscopy (~08/10/23) H/O toe surgery Hx of wisdom tooth extraction Family History Sister Ovarian cancer Paternal Grandmother History of breast cancer Mother Rheumatoid arthritis Other Family history of arthritis Social History Housing: House Alcohol intake: current Alcohol intake frequency: holidays/special occasions only Alcohol type: wine Patient Tobacco Use Status: Never used Tobacco e-Cigarette/Vaping Use: Never Used service: No Current occupational status: retired Cognitive needs: No Hearing needs: No Vision needs: Yes (reading) Questionnaire PHQ-9 Over the last 2 weeks, how often have you been bothered by any of the following problems? 1. Little interest or pleasure in doing things: not at all 2. Feeling down, depressed, or hopeless: not at all 3. Trouble falling or staying asleep, or sleeping too much: not at all 4. Feeling tired or having little energy: not at all 5. Poor appetite or overeating: not at all 6. Feeling bad about yourself - or that you are a failure or have let yourself or your family down: not at all 7. Trouble concentrating on things, such as reading the newspaper or watching television: not at all 8. Moving or speaking so slowly that other people could have noticed. Or the opposite - being so fidgety or restless that you have been moving around a lot more than usual: not at all 9. Thoughts that you would be better off or of hurting yourself in some way: not at all Total score: 0 Source: Developed by Drs. Filiberto Cooper, Etelvina Galarza, Dickson Leyva and colleagues, with an educational victorino from [employer]. Thrive Questionnaire Date Thrive assessed: 11/15/24 I am a: Patient Within the past 12 months, did the food you bought not last and you didn't have the money to get more?: Never true Within the past 12 months, did you worry whether your food would run out before you got money to buy more?: Never true Do you have trouble paying for medicines?: No Do you have trouble getting transportation to medical appointments?: No Do you have trouble paying your heating and electricity bill?: No Do you have trouble taking care of your child, family member or friend?: No Do you have trouble with day-to-day activities such as bathing, preparing meals, shopping, managing finances, etc.?: No Are you currently unemployed and looking for a job?: No Are you interested in more education?: No THRIVE Score: 0 AUDIT C Alcohol Use Questionnaire (AUDIT-C) 1. How often do you have a drink containing alcohol?: Never 3. How often do you have six or more drinks on one occasion?: Never Total Score: 0 GEORGINA-7 AMB Questionnaire GEORGINA-7 Date GEORGINA - 7 assessed: 11/15/24 Feeling nervous, anxious, or on edge: 0 = Not at all Not being able to stop or control worryin = Not at all Worrying too much about different things: 0 = Not at all Trouble relaxin = Not at all Being so restless that it is hard to sit still: 0 = Not at all Becoming easily annoyed or irritable: 0 = Not at all Feeling afraid as if something awful might happen: 0 = Not at all Total GEORGINA-7 score (0-4 normal; 5-9 mild; 10-14 moderate; 15-21 severe): 0 Source: Developed by Drs. Filiberto Cooper, Etelvina Galarza, Dickson Leyva and colleagues, with an educational victorino from [employer]. Physical exam (Primary Care) Vital Signs: Last Vital Signs Temp 97.2 F 11/15/24 14:00 Pulse 69 11/15/24 14:00 BP 122/74 11/15/24 14:00 Pulse Ox 98 11/15/24 14:00 Oxygen Delivery Method Room Air 11/15/24 14:00 BMI result Body Mass Index 24.1 Tobacco/Smoking Status: Tobacco use Status Tobacco use date assessed 11/15/24 11/15/24 14:03 Patient Tobacco Use Status Never used Tobacco 11/15/24 14:03 e-Cigarette/Vaping Use Never Used 11/15/24 14:24 PHQ-9: PHQ-9 Score PHQ-9: Total score 0 11/15/24 14:24 Thrive Assessment: Date of Thrive Assessment Date Thrive assessed 11/15/24 11/15/24 14:03 Coding Level of Care Code New Pt Level 4 (20731) Complex EM visit Add On G2211 Diagnoses History of polymyalgia rheumatica Z87.39 Assessment & Plan Assessment & Plan (1) History of polymyalgia rheumatica: Comment: Onset 03/2022, prednisone started Code(s): Z87.39 - Personal history of other diseases of the musculoskeletal system and connective tissue Category: Medical Plan: Continue prednisone at same dosage. Tetanus vaccine administered Plan History of Present Illness The patient is a 68-year-old female presenting with the management of Polymyalgia Rheumatica and concerns regarding a paraumbilical hernia. She is currently managed with prednisone at a reduced dosage of 2.[address] Murrieta's guidance. She reports a desire to minimize medication to lower future side effect risks. The patient also seeks vaccination updates, specifically mentioning a tetanus booster due to the potential 10-year interval since her last dose. Her symptomatic sensation of an outpouching at the umbilical area links to a paraumbilical hernia, reported as mildly noticeable but non-problematic at this time. 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 [employer] Review of Systems - Musculoskeletal: Reports polymyalgia - Immunologic: Reports inquiries about tetanus vaccination status - Gastrointestinal: Reports protrusion and unusual sensation at the belly button - General: Denies current employment, confirmed skilled nursing status Physical Exam General: Cooperative and healthy appearing Nutritional Appearance: Well nourished Orientation/consciousness: Patient oriented x3 Limitations: No limitations Head: Normal to inspection General: Appearance normal, both eyes and all related structures Neck: Normal visual inspection Chest: Normal palpation of entire chest wall Respiratory: N ormal respiratory effort Neurology: Patient oriented x3, paraumbilical hernia present Results Plan 1. 5 mg as she is stable. The paraumbilical hernia does not require any intervention at this time, given its benign nature. Cholesterol and thyroid function tests are planned to establish a health baseline, and her tetanus vaccination status should be confirmed to ensure it is up to date. Monitoring of hernia development and maintaining regular follow-up for any changes or symptoms were advised.: Patient was informed and verbally consented to the use of an ambient scribe for clinic note documentation during this visit. Discussion Notes I discussed the management plan with the patient, focusing on maintaining the current prednisone therapy due to a stable presentation of her Polymyalgia Rheumatica. I explained the benign nature of her paraumbilical hernia, advising observation unless future changes occur. She understood there is no current necessity for surgical intervention. The importance of completing her routine cholesterol and thyroid function assessments was emphasized to support her overall health management. We agreed on verifying her tetanus vaccination status to maintain up-to-date immunizations. She was receptive to monitoring the hernia and informed about precautionary signs to watch. Patient Instructions - Continue current prednisone dose of 2.5 mg daily - Monitor the navel area for changes; no immediate surgery needed - Verify tetanus vaccination status, update if needed - Schedule and complete blood work for cholesterol and thyroid - Report any significant changes in symptoms or health promptly
--- OUTSIDE RECORDS SUMMARY | 2024-11-15 16:37 | XMS_ITS ---
Author Organization [facility] Address [address] [place] [address] Care Team Providers Care Convict Guard Name Role Phone Vasyl Carranza MD Primary [...] Problem Status W/U Status Risk Notes Problem 644052277 Colon cancer screening (Z12.11) Active confirmed Problem 443719912 Long-term curren t use of high risk medication other than anticoagulant (Z79.899) Active confirmed Vital Signs Temperature 96.2 degrees Fahrenheit 06/17/20 23 Blood pressure systolic 00 mm Hg 06/17/20 23 Blood pressure diastolic 00 mm Hg 023 Height 5 ft 7 in in 06/17/2023 Weight 160 lbs 06/17/2023 BMI 25.06 kg/m2 06/17/2023 Encounters Encounter Location Date Provider Diagnosis [facility] [address] [place] [phone] 06/17/2023 Michael Lopes Jr Colon cancer screening [...] * CURTIS WYMANA LDOB:1955 (67 yo F)Acc No.[id number]:06/17/2023 Progress Notes Patient:?CHEYENNE WYMAN Provider:?Michael Lopes MD :1955???Age:67 Y???Sex:Female D ate:06/17/2023 Address:[address] [place], [place] [id number] Pcp:Vasyl Carranza MD Subjective: * Chief Complaints: [...] ASCUS/HPV. * Surgical History:?Toe surger y , [place] teeth extractions . * Family History:?Father: aliv [...] Lopes MD Date:?08/17/2022 Generated for Anne-Marie patino/Daniel/eTransmitting on:?11/15/2024 04:36 PM EDT History and Physical Notes * [...]
--- OUTSIDE RECORDS SUMMARY | 2024-11-15 16:37 | XMS_ITS ---
Author Organization [facility] Address [address] [place] [phone] Care Team Providers Care Ribbon Weaver Name Role Phone Vasyl Carranza MD Primary Care Provider Michael Zuniga Jr REASON FOR VISIT NEW INSURANCE Encounters Encounter Location Date Provider Diagnosis [facility] [address] [place] [phone] 05/25/2023 Michael Lopes Jr Plan Of Treatment No Information Progress Notes * MERY WYMANB:[birth year] (67 yo F)Acc No.[id number]:05/25/2023 Patient:?GARO LANCE :1955???Age:67 Y???Sex:Female Address:[address] [place] [address] * true * Date:? Generated for Danettei carey/Daniel/eTransmitting on:?11/15/2024 04:37 PM EDT
--- OUTSIDE RECORDS SUMMARY | 2024-11-15 16:37 | XMS_ITS ---
Author Organization [facility] Address [address] [place] [address] Care Team Providers Care Metallurgical Technician Name Role Phone Vasyl Carranza MD Primary Care Provider Michael Zuniga Jr [phone] REASON FOR VISIT screening Encounters Encounter Location Date Provider Diagnosis [facility] [address] [place], [place] [id number] 08/10/2023 Michael Lopes Jr Encounter for screening colonoscopy Z12.11 Assessments Encounter Date Diagnosis (ICD Code) Assessment Notes Treatment Notes Treatment Clinical Notes Section Notes 08/10/2023 Encounter for screening colonoscopy (ICD-10 - Z12.11) Plan Of Treatment No Information Progress Notes * LANCE WYMAN LDOB:1955 (68 yo F)Acc No.[id number]:08/10/2023 COLON WITH MAC Patient:?GARO LANCE Gamble Provider:?Michael Lopes MD :1955???Age:67 Y???Sex:Female D ate:08/10/2023 Address: [address] [place] Pcp:Vasyl Carranza MD Subjective: * Chief Complaints: * ???1. Screening. * Medical History:? Objective: * Vitals:? Assessment: * Assessment: 1.?Encounter for screening c olonoscopy - Z12.11 (Primary)??? Plan: * Treatment: * Procedure Codes:?07406 DIAGN OSTIC COLONOSCOPY, 0529F INTRVL 3+YRS PTS CLNSCP DOCD, 0528F RCMND FLW-UP 10 YRS DOCD * * The named appointment provid er may or may not be the originator of this progress note, and it is not deemed complete until electronically signed by the appointment provider. Sign off status: Pending * Provider:?Michael Lopes MD Date:?0 08/10/2023 Generated for Anne-Marie patino/Daniel/Hernandez on:?11/15/2024 04:37 PM EDT
--- OUTSIDE RECORDS SUMMARY | 2024-11-15 16:38 | XMS_ITS | Patient Health Record ---
Author Organization [facility] Address [address] [place] [address] Care Team Providers Care Engine Inspector Name Role Phone Vasyl Carranza MD Primary [...] Problem Status W/U Status Risk Notes Problem [id number] Colon cancer screening (Z12.11) Active confirmed Problem 853537867 Long-term curren t use of high risk medication other than anticoagulant (Z79.899) Active confirmed Plan Of Treatment Future Test Test Name Order Date COLONOSCOPY 06/17/2023 Insurance Providers Payer Name Payer Address Payer Phone Subscriber Number Group Number Insured Name Patient Relationship to Insured Coverage Start Date Coverage End Date MEDICARE OF [employer] [address] [place] [id number] LANCE WYMAN Self - patient is the insured [employer] ATT[employer] CLAIMS [address] [place] [address] [id number] LANCE WYMAN Self - patient is the insured Medical (General) History Medical History History ICD Code Nephrolithiasis Polymyalgia rheumatica Colonoscopy 01/04/09, diverticulosis, ten- year followup Osteoporosis Osteoarthritis ASCUS/HPV Surgical History Surgery Date(Month/Year) Toe surgery [place] teeth extractions
== END 2024-11-15 15:03 | disposition home or self-care (01) ==
LOC: HO.HMCHD 13:54
PROVIDERS: PCP Internal Medicine; Visit Provider Internal Medicine
DX: Z87.39 Personal history of other diseases of the musculoskeletal system and connective tissue (principal)

== ENCOUNTER → 2024-11-15 13:54 | Outpatient (BNVA) | payer MEDICARE, SELFPAY | PROVIDERS: PCP Internal Medicine; Visit Provider Internal Medicine | DX: M35.3 Polymyalgia rheumatica (principal); Z79.52 Long term (current) use of systemic steroids | CPT/HCPCS: 96127; 99202 ==

== ENCOUNTER 2024-12-22 08:48 | Outpatient (REF) | payer MEDICARE, SELFPAY ==
--- OUTSIDE RECORDS SUMMARY | 2024-12-22 09:11 | XMS_ITS ---
Author Organization [facility] Address [address] [place] [address] Care Team Providers Care Art Gallery Internship Name Role Phone Vasyl Carranza MD Primary Care Provider Michael Zuniga Jr [phone] REASON FOR VISIT screening Encounters Encounter Location Date Provider Diagnosis [facility] [place] [facility] [address] [place] [id number] 08/10/2023 Michael Lopes Jr Encounter for screening colonoscopy Z12.11 Assessments Encounter Date Diagnosis (ICD Code) Assessment Notes Treatment Notes Treatment Clinical Notes Section Notes 08/10/2023 Encounter for screening colonoscopy (ICD-10 - Z12.11) Plan Of Treatment No Information Progress Notes * LANCE WYMAN LDOB:1955 (68 yo F)Acc No.[id number]:08/10/2023 COLON WITH MAC Patient:?GARO LANCE Gamble Provider:?Michael Lopes MD :1955???Age:67 Y???Sex:Female D ate:08/10/2023 Address: [id number] Pcp:Vasyl Carranza MD Subjective: * Chief Complaints: * ???1. Screening. * Medical History:? Objective: * Vitals:? Assessment: * Assessment: 1.?Encounter for screening c olonoscopy - Z12.11 (Primary)??? Plan: * Treatment: * Procedure Codes:?04573 DIAGN OSTIC COLONOSCOPY, 0529F INTRVL 3+YRS PTS CLNSCP DOCD, 0528F RCMND FLW-UP 10 YRS DOCD * * The named appointment provid er may or may not be the originator of this progress note, and it is not deemed complete until electronically signed by the appointment provider. Sign off status: Pending * Provider:?Michael Lopes MD Date:?0 08/10/2023 Generated for Anne-Marie patino/Daniel/Dylonitting on:?12/22/2024 09:11 AM EDT
[2024-12-22 10:02] LABS: MANUAL DIFF FLAG NO
[2024-12-22 10:09] LABS: Basophils Absolute Auto 0.1 X10*3/uL (0.0-0.2); Basophils Percent Auto 0.7 % (0-2); Eosinophils Absolute Auto 0.1 X10*3/uL (0.0-0.4); Eosinophils Percent Auto 0.9 % (0-4); Hematocrit 40.3 % (37.0-47.0); Imm Gran Abs Auto 0.01 X10*3/uL (0.00-0.03); Imm Gran Pct Auto 0.1 % (0.0-0.4); Lymphocytes Absolute Auto 2.3 X10*3/uL (1.2-4.9); Lymphocytes Percent Auto 32.2 % (20-40); Mean Corpuscular HGB Conc 32.3 g/dl (31.0-35.0); Mean Corpuscular Hemoglobin 32.5 pg (27.0-33.0); Mean Corpuscular Volume 100.8 fL (80.0-98.0); Mean Platelet Volume 8.6 fL (9.4-12.3); Monocytes Absolute Auto 0.8 X10*3/uL (0.1-1.2); Monocytes Percent Auto 10.9 % (2-11); Neutrophils Absolute Auto 3.9 x10*3/uL (2.0-8.3); Neutrophils Percent Auto 55.2 % (45-73); Platelet Count 303 X10*3/uL (160-400); Red Cell Distribution Width 11.9 % (11.0-16.0)
[2024-12-22 10:38] LABS: Alanine Aminotransferase 13 U/L (0-31); Aspartate Amino Transferase 26 U/L (5-31); C Reactive Protein 0.36 mg/dL (< or = 0.50); Estimated Glomerular Filt Rate > 60
[2024-12-22 10:49] LABS: Erythrocyte Sedimentation Rate 54 MM/HR (0-20)
== END 2024-12-22 08:49 | disposition home or self-care (01) ==
LOC: HO.HMGCLDS 08:48
PROVIDERS: PCP Internal Medicine; Visit Provider Internal Medicine Rheumatology
DX: M19.90 Unspecified osteoarthritis, unspecified site (principal); M35.3 Polymyalgia rheumatica; M85.9 Disorder of bone density and structure, unspecified
CPT/HCPCS: 36415; 82565; 84450; 84460; 85025; 85652; 86140

== ENCOUNTER 2025-01-09 12:17 | Outpatient (REF) | payer MEDICARE, SELFPAY | END 2025-01-09 12:18 | disposition home or self-care (01) | LOC: HO.LNP 12:17 | PROVIDERS: PCP Internal Medicine; Visit Provider Obstetrics & Gynecology | DX: R87.810 Cervical high risk human papillomavirus (HPV) DNA test positive (principal) | CPT/HCPCS: 57454; 88305; 88341; 88342 ==

== ENCOUNTER 2025-01-09 12:17 | Outpatient (AMB) | payer MEDICARE, SELFPAY ==
--- NOTE | 2025-01-09 12:38 | MHC.OFFVIS ---
Intake Visit Reasons: Colposcopy Event Organizer: Event Organizer Present (Becka) Accompanied by: Self / Same As Patient Allergies penicillin V Allergy (Unknown, Verified 01/09/25 12:39) Unknown HPI Comments Details: Presenting referred from [facility] Chirinos regarding type smear negative/HPV high-risk positive, HPV 16/18 negative. The patient has the following history of abnormal cervical cancer screening 02/19 Pap smear negative/HPV positive, HPV 16/18/45 negative 02/20 ascus/HPV positive, HPV 16/18 negative, colpo biopsy ECC negative 09/25 co testing negative 11/24 Pap negative/HPV high-risk positive, HPV 16/18 negative PFSH Medical History ASCUS with positive high risk HPV cervical Incontinence Polymyalgia rheumatica History of kidney stones Diverticulitis Arthritis Kedar's disease Surgical History History of colonoscopy (~08/10/23) H/O toe surgery Hx of wisdom tooth extraction Family History Sister Ovarian cancer Paternal Grandmother History of breast cancer Mother Rheumatoid arthritis Other Family history of arthritis Social History Housing: House Alcohol intake: current Alcohol intake frequency: holidays/special occasions only Alcohol type: wine Patient Tobacco Use Status: Never used Tobacco e-Cigarette/Vaping Use: Never Used service: No Current occupational status: retired Cognitive needs: No Hearing needs: No Vision needs: Yes (reading) Review of Systems Const All systems reviewed & are unremarkable except as noted in HPI and below Reports as per HPI and Reports no additional complaints GI Reports no additional complaints Reports no additional complaints Office Procedures Colposcopy Colposcopy: Pre-Procedure Counseling: Before beginning the procedure, I conducted comprehensive counseling with the patient. We thoroughly discussed the procedure itself, including its details, alternatives, and all associated risks. This included but not limited to the following complications such as bleeding, infection, and injury to the vagina, bladder, and vessels, as well as the potential need for transfusion with all its associated risks. Subsequently, the patient sign the consent. Pap smear result: Pap/HPV +/HPV 16/18 neg. Procedure: During the procedure, the following steps were performed: A speculum was inserted, and acetic acid was applied. Colposcopy was conducted, allowing visualization of the transformation zone. Acetowhite lesions were identified at the 10+12 o'clock position. Cervical biopsies were obtained from the 10+12 o'clock position, followed by an endocervical curettage (ECC). Vaginoscopy of the upper vagina revealed no evidence of aceto-white lesions. Hemostasis was achieved using Monsel solution, and the patient tolerated the procedure well. Post-Procedure Instructions: The patient was advised to promptly contact the office or the after hours answering service or go to the emergency room if experiencing a temperature exceeding 100.4?F, abdominal pain, nausea/vomiting, or bleeding. Additionally, the patient was instructed to abstain from vaginal intercourse and bathtub use. The patient confirmed understanding of these instructions. Discharge Instructions: The patient was instructed to schedule a follow-up appointment in 2 weeks for further evaluation and management. Please note that this note was generated using a voice recognition program, and errors may have occurred during auto crane driver. 39972-Uhjjdxdku of cervix including upper vagina with biopsy and ECC Procedure code (CPT) selection complete Assessment & Plan Assessment & Plan (1) Cervical high risk HPV (human papillomavirus) test positive: Comment: Pap negative Code(s): R87.810 - Cervical high risk human papillomavirus (HPV) DNA test positive Category: Medical Plan: Discussed with the patient the result of her abnormal cervical cancer screening, negative Pap, HPV high-risk positive, HPV 16/18 positive, its significance, risk of progression, persistence, and regression. the false positive/negative rate of a Pap smear as a screening test in detecting cervical cancer and the indication for a diagnostic test -colposcopy, biopsy, endocervical curettage. The patient verbalized understanding and agreed with the plan, all questions answered. Colposcopy, biopsy /ECC done, see procedure note Orders: Orders AMB Colposcopy Today R87.810 - Cervical high risk human papillomavirus (HPV) DNA test positive Coding Level of Care Code Procedure Only Diagnoses Cervical high risk HPV (human papillomavirus) test positive R87.810 CPT Codes Colposcopy - CPT: 34797-Hlscbcnkt of cervix including upper vagina with biopsy and ECC ([id number])
--- OUTSIDE RECORDS SUMMARY | 2025-01-09 14:31 | XMS_ITS | Patient Health Record ---
Author Organization [facility] Address [address] [place] [address] Care Team Providers Care Automatic Buffing Wheel Former Name Role Phone Vasyl Carranza MD Primary Care Provider Dimitrios Garcia Unavailable [phone] Allergies Allergen (clinical drug ingredient) Drug/Non Drug Allergy documented on EMR Reaction Allergy Type Onset Date Status Penicillin stomach upset Drug Allergy Ac tive latex Anaphylaxis-Poly myxinB Drug Allergy Active Adhesive Tape rash Drug Allergy Act karma Reason For Referral No Information Medications Medication SIG (Take, Route, Fr equency, Duration) Notes Start Date End Date Status vitamin as directed Active Tolnaftate 1 % 1 application to aff ected area Externally Twice a day for 30 days 01/05/2013 Active Problems Problem Type SNOMED Code ICD Code Onset Dates Problem Status W/U Status Risk Notes Problem Onychomycosis (430799018) Onychomycosis (110.1) Active confirmed Problem Pain in limb (18050869) Pain in Limb (729.5) Active confirmed Problem Ingrowing nail (651159005) Ingrowing Nail (703.0) Active confirmed Plan Of Treatment Pending Test Test Name Order Date [id number] NAIL, 1-5 12/07/2012 46979-Jshlhwtf Plate 12/22/2012 65846-Ygziodhp Plate 01/04/2014 22809-Zlrtnuia Plate Each Additional 70846- Debride <25 sq cm 01/05/2013 Insurance Providers Payer Name Payer Address Payer Phone Subscriber Number Group Number Insured Name Patient Relationship to Insured Coverage Start Date Coverage End Date [facility] [address] [place] [address] [phone] [id number] LANCE WYMAN Self - patient is the insured Medical (General) History Medical History History ICD Code anxiety Arthritis back, hip, knee pain broken bones diverticulosis chicken pox thyroid disorder Surgical History Surgery Date(Month/Year) foot surgery 01/2002 wisdom teeth extraction colonoscopy
== END 2025-01-09 13:09 | disposition home or self-care (01) ==
LOC: HO.HWS 12:17
PROVIDERS: PCP Internal Medicine; Visit Provider Obstetrics & Gynecology
DX: R87.810 Cervical high risk human papillomavirus (HPV) DNA test positive (principal)
CPT/HCPCS: 57454

== ENCOUNTER 2025-01-30 09:56 | Outpatient (AMB) | payer MEDICARE, SELFPAY ==
--- OUTSIDE RECORDS SUMMARY | 2023-08-10 05:20 | XMS_ITS ---
Author Organization [facility] Address [address] [place] [id number] Care Team Providers Care Instructional Materials Director Name Role Phone Vasyl Carranza MD Primary Care Provider Michael Zuniga Jr [phone] REASON FOR VISIT screening Encounters Encounter Location Date Provider Diagnosis [facility] Outpatient [address] [place] [id number] 08/10/2023 Michael Lopes Jr Encounter for screening colonoscopy Z12.11 Assessments Encounter Date Diagnosis (ICD Code) Assessment Notes Treatment Notes Treatment Clinical Notes Section Notes 08/10/2023 Encounter for screening colonoscopy (ICD-10 - Z12.11) Plan Of Treatment No Information Progress Notes * LANCE WYMAN LDOB:1955 (69 yo F)Acc No.[id number]:08/10/2023 COLON WITH MAC Patient: LANCE REDDY Provider: Tony Lopes MD :1955 A ge:67 Y S ex:Female Date:08/10/2023 Address: [address] [id number] Pcp:Vasyl Carranza MD Subjective: * Chief Complaints: * 1 . Screening. * Medical History: Objective: * Vitals: Assessment: * Assessment: 1. E ncounter for screening colonoscopy - Z12.11 (Primary) Plan: * Treatment: * Procedure Codes: 4 5378 DIAGNOSTIC COLONOSCOPY, 0529F INTRVL 3+YRS PTS CLNSCP DOCD, 0528F RCMND FLW-UP 10 YRS DOCD * * The named appointment provid er may or may not be the originator of this progress note, and it is not deemed complete until electronically signed by the appointment provider. Sign off status: Pending * Provider: Tony Lopes MD Date: 0 08/10/2023 Generated for Anne-Marie patino/Daniel/Dylonitting on: 0 01/30/2025 10:54 AM EDT
--- NOTE | 2025-01-30 09:57 | A.OFFVIS_ITS ---
Intake Visit Reasons: TV colpo results Allergies penicillin V Allergy (Unknown, Verified 01/09/25 12:39) Unknown HPI Comments Details: The patient is scheduled a telehealth visit post colpo for follow-up. The patient is doing well with no complaints. The pathology showed the following: A. Endocervix, curettage: Small fragment of squamous epithelium within normal limits; no endocervical epithelium present. B. Cervix, 10 o'clock, biopsy: - Low-grade squamous intraepithelial lesion (WESLEY 1); background atrophy. - No endocervical epithelium identified. C. Cervix, 12 o'clock, biopsy: - Low-grade squamous intraepithelial lesion (WESLEY 1); background atrophy. - No endocervical epithelium identified. [facility] Medical History (Updated 01/30/25 @ 09:59 by Stevenson Oconnor MD) ASCUS with positive high risk HPV cervical Incontinence Polymyalgia rheumatica History of kidney stones Diverticulitis Arthritis Kedar's disease Surgical History History of colonoscopy (~08/10/23) H/O toe surgery Hx of wisdom tooth extraction Family History Sister Ovarian cancer Paternal Grandmother History of breast cancer Mother Rheumatoid arthritis Other Family history of arthritis Social History Housing: House Alcohol intake: current Alcohol intake frequency: holidays/special occasions only Alcohol type: wine Patient Tobacco Use Status: Never used Tobacco e-Cigarette/Vaping Use: Never Used service: No Current occupational status: retired Cognitive needs: No Hearing needs: No Vision needs: Yes (reading) Review of Systems Const All systems reviewed & are unremarkable except as noted in HPI and below Reports as per HPI and Reports no additional complaints GI Reports no additional complaints Reports no additional complaints Telehealth Telehealth Telehealth Platform: [facility] Location of provider rendering services: practice address Location of patient: address on file Patient Identification confirmed using: Name, : Yes Telehealth method: video Patient verbally consented to treatment: Yes Patient verbally consented to billing insurance company: Yes Patient informed of any privacy concerns related to visit: Yes Minutes spent on Phone/Video with Pt.: 3 Assessment & Plan Assessment & Plan (1) Dysplasia of cervix, low grade (WESLEY 1): Code(s): N87.0 - Mild cervical dysplasia Category: Medical Plan: Discussed with the patient the pathology results of the colposcopy biopsies & endocervical curettage ( mild dysplasia-WESLEY 1). Discussed with the patient the sensitivity specificity, positive and negative predictive value in detecting cervical cancer in addition discussed the regression, persistence and progression rates. Recommended co-testing in 12 months, if cytology and or HPV are abnormal will proceed was colposcopy biopsy and endocervical curettage. Instructions given to the patient to schedule a co test appointment in 1 year. All questions answered the patient verbalized understanding. I spent a total of 20 minutes reviewing the chart, talking to the patient via video and documenting in the medical record. Coding Level of Care Code Tele Est Pt Level 3 (86192) Diagnoses Dysplasia of cervix, low grade (WESLEY 1) N87.0
--- OUTSIDE RECORDS SUMMARY | 2025-01-30 10:55 | XMS_ITS | Patient Health Record ---
Author Organization [facility] Address [address] [place] [address] Care Team Providers Care Production Finisher Name Role Phone Vasyl Carranza MD Primary Care Provider Dimitrios Garcia Unavailable [phone] Allergies Allergen (clinical drug ingredient) Drug/Non Drug [...] to aff ected area Externally Twice a day; Duration: 30 days 01/05/2013 Active Problems Problem Type SNOMED Code ICD Code Onset Dates Problem Status W/U Status Risk Notes Problem Onychomycosis (994473162) Onychomycosis (110.1) Active confirmed Problem Pain in limb (71705290) Pain in Limb (729.5) Active confirmed Problem Ingrowing nail (305648573) Ingrowing Nail (703.0) Active confirmed Plan Of Treatment Pending Test Test Name Order Date [id number] NAIL, 1-5 12/07/2012 07701-Elfncrrx Plate 12/22/2012 80605-Gjdeoppy Plate 01/04/2014 27444-Vzpcuaij Plate Each Additional 81629- Debride <25 sq cm 01/05/2013 Insurance Providers Payer Name Payer Address Payer Phone Subscriber Number Group Number Insured Name Patient Relationship to Insured Coverage Start Date Coverage End Date [facility] [address] [place] [address] [phone] [id number] LANCE WYMAN Self - patient is the insured Medical (General) History Medical History History ICD Code anxiety Arthritis back, hip, knee pain broken bones diverticulosis chicken pox thyroid disorder Surgical History Surgery Date(Month/Year) foot surgery 01/2002 wisdom teeth extraction colonoscopy
== END 2025-01-30 10:08 | disposition home or self-care (01) ==
LOC: HO.HWS 09:56
PROVIDERS: PCP Internal Medicine; Visit Provider Obstetrics & Gynecology
DX: N87.0 Mild cervical dysplasia (principal)
CPT/HCPCS: 99213

== ENCOUNTER 2025-04-26 07:50 | Outpatient (REF) | payer MEDICARE, SELFPAY ==
--- OUTSIDE RECORDS SUMMARY | 2025-04-26 07:53 | XMS_ITS | Patient Health Record ---
Author Organization [facility] Address [address] [place] [address] Care Team Providers Care Yoke Presser Name Role Phone Dillon (RETIRED) Vasyl LABOY Primary Care Provide Michael Pérez Jr Unavailable Allergies Allergen (clinical drug ingredient) [...] Problem Status W/U Status Risk Notes Problem 126855030 Colon cancer screening (Z12.11) Active confirmed Problem 829237712 Long-term curren t use of high risk medication other than anticoagulant (Z79.899) Active confirmed Plan Of Treatment Future Test Test Name Order Date COLONOSCOPY 06/17/2023 Insurance Providers Payer Name Payer Address Payer Phone Subscriber Number Group Number Insured Name Patient Relationship to Insured Coverage Start Date Coverage End Date MEDICARE OF [employer] [address] [place] [id number] [phone] [id number] LANCE WYMAN Self - patient is the insured Original ATTN CLAIMS [address] [place] [address] [id number] LANCE WYMAN Self - patient is the insured Medical (General) History Medical History History ICD Code Nephrolithiasis Polymyalgia rheumatica Colonoscopy 01/04/09, diverticulosis, ten- year followup Osteoporosis Osteoarthritis ASCUS/HPV Surgical History Surgery Date(Month/Year) Toe surgery [place] teeth extractions
--- OUTSIDE RECORDS SUMMARY | 2025-04-26 07:53 | XMS_ITS | Patient Health Record ---
Author Organization [facility] Address [address] [place] [address] Care Team Providers Care Cap Coverer Name Role Phone Vasyl Carranza MD Primary Care Provider Dimitrios Garcia Unavailable [phone] Allergies Allergen (clinical drug ingredient) Drug/Non Drug [...] Status W/U Status Risk Notes Problem Onychomycosis (485967952) Onychomycosis (110.1) Active confirmed Problem Pain in limb (22254599) Pain in Limb (729.5) Active confirmed Problem Ingrowing nail (840275855) Ingrowing Nail (703.0) Active confirmed Plan Of Treatment Pending Test Test Name Order Date [id number] NAIL, 1-5 12/07/2012 89981-Vwrecmzq Plate 12/22/2012 13104-Uifiwujj Plate 01/04/2014 84849-Fdcsgabr Plate Each Additional 99542- Debride <25 sq cm 01/05/2013 Insurance Providers Payer Name Payer Address Payer Phone Subscriber Number Group Number Insured Name Patient Relationship to Insured Coverage Start Date Coverage End Date [facility] [address] [place] [address] [phone] [id number] LANCE WYMAN Self - patient is the insured Medical (General) History Medical History History ICD Code anxiety Arthritis back, hip, knee pain broken bones diverticulosis chicken pox thyroid disorder Surgical History Surgery Date(Month/Year) foot surgery 01/2002 wisdom teeth extraction colonoscopy
[2025-04-26 10:30] LABS: MANUAL DIFF FLAG NO
[2025-04-26 10:44] LABS: Hematocrit 39.0 % (37.0-47.0); Hemoglobin 12.7 g/dl (12.0-16.0); Imm Gran Abs Auto 0.02 X10*3/uL (0.00-0.03); Imm Gran Pct Auto 0.3 % (0.0-0.4); Lymphocytes Absolute Auto 2.3 X10*3/uL (1.2-4.9); Mean Corpuscular HGB Conc 32.6 g/dl (31.0-35.0); Mean Corpuscular Hemoglobin 32.6 pg (27.0-33.0); Mean Corpuscular Volume 100.3 fL (80.0-98.0); NRBC Abs Auto 0.000 X10*3/uL (0.0-0.012); NRBC Pct Auto 0.0 /100WBC (0.0-0.2); Platelet Count 312 X10*3/uL (160-400); Red Blood Count 3.89 X10*6/uL (4.20-5.50); White Blood Count 7.7 X10*3/uL (4.8-10.8)
[2025-04-26 11:15] LABS: Alanine Aminotransferase 14 U/L (0-31); Aspartate Amino Transferase 26 U/L (5-31); Estimated Glomerular Filt Rate > 60
== END 2025-04-26 07:51 | disposition home or self-care (01) ==
LOC: HO.HMGCLDS 07:50
PROVIDERS: PCP Internal Medicine; Visit Provider Internal Medicine Rheumatology
DX: M35.3 Polymyalgia rheumatica (principal); M85.9 Disorder of bone density and structure, unspecified; M19.90 Unspecified osteoarthritis, unspecified site
CPT/HCPCS: 36415; 82565; 84450; 84460; 85025; 85652; 86140

== ENCOUNTER 2025-05-23 09:36 | Outpatient (REF) | payer MEDICARE, SELFPAY ==
[2025-05-23 12:25] LABS: Alanine Aminotransferase 26 U/L (0-31); Albumin Level 4.3 g/dL (3.5-5.0); Alkaline Phosphatase 79 U/L (39-117); Anion Gap 9 (12-20); Aspartate Amino Transferase 35 U/L (5-31); Blood Urea Nitrogen 14 mg/dL (9-16); Calcium 9.2 mg/dL (8.4-10.2); Carbon Dioxide 29 mmol/L (22-29); Chloride 106 mmol/L (96-108); Cholesterol 222 mg/dL (<200); Estimated Glomerular Filt Rate > 60; HDL Cholesterol 76 mg/dL (>40); Potassium 3.8 mmol/L (3.3-5.1); Sodium 140 mmol/L (135-145); Total Protein 7.7 g/dL (6.5-8.0); Triglycerides 94 mg/dL (<150)
== END 2025-05-23 09:37 | disposition home or self-care (01) ==
LOC: HO.10HDL 09:36
PROVIDERS: Visit Provider Physician Assistant Medical
DX: Z13.220 Encounter for screening for lipoid disorders (principal); E06.3 Autoimmune thyroiditis; Z79.899 Other long term (current) drug therapy
CPT/HCPCS: 36415; 80053; 80061; 84443